=== PATIENT | male | born 1940 | race Hispanic/Latino ===

== ENCOUNTER 2019-07-23 12:45 | Inpatient (IN) | payer MEDICARE, SELFPAY ==
[2019-07-23] MEDS ORDERED: Communication Order-Pharmacy FS SCH (16:33)
--- NOTE | 2019-07-23 17:16 | PDOC.HHP ---
Hospitalist HPI - History of Present Illness Chest pain History of Present Illness: Patient admitted with plans to undergo CABG by Dr. Townsend after undergoing abnormal cardiac work-up and a cath that revealed severe LAD stenosis by Dr. Corbett. He was recently hospitalized on 07/07 for 3 days after presenting with chest pain and cleared for discharge. Patient states the pain that he experienced then was not as severe as the pain on Saturday. It was constant for 2.5 hrs and relieved with medications. He apparently had recurring pain this past Saturday at 9am while picking up around his front yard, and then severe pain at 5pm when shoveling food for his horses. Patient states the pain began on both sides of his jaw and radiating down to the center of his chest, 10/10 in severity and lasted 5 min. Relieved with rest. He became alarmed and contacted his daughter who lives in [place] and helped him schedule an appointment. He had a cardiac PET perfusion scan yesterday that was "markedly abnormal reavealing moderate size area of ischemia involving anterior apical wall with no scarring and normal EF. He reportedly had a normal cath several years ago. He is a previous smoker. He has had an EKG showing NSR with diffuse nonspecific ST-T wave changes. CXR on 07/07 was unremarkable. Echo on 07/07 showed normal EF of 55%, stage I diastolic dysfunction and hypokinesis of anterior apex. PA pressure 22 mmHg. Carotid US 07/22 with minimal amount of plaques and no significant stenoses. Hospitalist ROS - Review of Systems Constitutional: denies: fever, chills, sweats, weakness, malaise, other Eyes: denies: pain, vision change, conjunctivae inflammation, eyelid inflammation, redness, other ENT: denies: ear pain, ear discharge, nose pain, nose discharge, nose congestion , mouth pain, mouth swelling, throat pain, throat swelling, other Respiratory: denies: cough, dry, shortness of breath, hemoptysis, SOB with excertion, pleuritic pain, sputum, wheezing, other Cardiovascular: reports: chest pain. denies: palpitations, orthopnea, paroxysmal noc. dyspnea, edema, light headedness, other Gastrointestinal: denies: nausea, vomiting, abdominal pain, diarrhea, constipation, melena, hematochezia, other Genitourinary: denies: dysuria, frequency, incontinence, hematuria, retention, other Musculoskeletal: denies: neck pain, shoulder pain, arm pain, back pain, hand pain, leg pain, foot pain, other Skin: denies: rash, lesions, maco, bruising, other Neurological: denies: weakness, numbness, incoordination, change in speech, confusion, seizures, other Hospitalist History - Past Surgical History Past Surgical History: reports: Cataract Removal, Other (Right knee surgery) - Social History Smoking Status: Former smoker (10 pack year smoking history) Alcohol: reports: Occassional - Exam General Appearance: NAD, awake alert Eye: PERRL, anicteric sclera ENT: normocephalic atraumatic, no oropharyngeal lesions Neck: supple, symmetric, no JVD, no lymphadenopathy Heart: RRR, no murmur, no gallops Respiratory: CTAB, no wheezes, no rales, no ronchi, normal chest expansion, no tachypnea Gastrointestinal: soft, non-tender, non-distended, normal bowel sounds, no guarding, no rigidity Extremities: no edema Skin: normal turgor, no lesions Neurological: cranial nerve grossly intact, normal sensation to touch, no weakness, no focal deficits Musculoskeletal: normal tone, normal strength Psychiatric: normal affect, normal behavior, A&O x 3 Hospitalist Results - Labs Result Diagrams: 07/23/19 17:28 07/23/19 17:28 Hospitalist H&P A/P - Problem (1) Unstable angina Status: Acute (2) LAD stenosis Code(s): I25.10 - ATHSCL HEART DISEASE OF [place] CORONARY ARTERY W/O ANG PCTRS Status: Acute (3) Dyslipidemia Code(s): E78.5 - HYPERLIPIDEMIA, UNSPECIFIED Status: Chronic (4) Essential hypertension Code(s): I10 - ESSENTIAL (PRIMARY) HYPERTENSION Status: Chronic (5) Hyperglycemia Code(s): R73.9 - HYPERGLYCEMIA, UNSPECIFIED Status: Chronic (6) Former smoker Status: Chronic - Plan Plan: Seen by Dr. Townsend, for surgery tmrw. NPO at midnight. Cardiology consult. Cardiac monitoring. Obtain CBC, BMP, Mg+, TSH, Trop x 2. Suspected DM, obtain Hgb A1C Monitor glucose. Gentle IV hydration at midnight. Fasting lipid panel. Resume home meds once verified. DVT prophylaxis with SCDs. Patient ambulatory. GI Prophylaxis with famotidine. Code status: FULL. Surrogate decision maker is his daughter
[2019-07-23 17:57] LABS: #Basophils 0.1 thou/uL (0.0-0.2); #Eosinphils 0.3 thou/uL (0.0-0.7); #Lymphocytes 1.6 thou/uL (1.20-3.40); #Monocytes 0.5 thou/uL (0.11-0.59); #Neutrophils 2.6 thou/uL (1.40-6.50); %Eosinophils 6.1 % (0.0-10.0); %Monocytes 10.6 % (0.0-10.0); %Neutrophils 51.2 % (42.0-75.0); Hemoglobin 13.4 g/dL (14.0-18.0); MDiff Complete? YES; Mean Corpuscular HGB CONC 33.8 g/dL (32.0-36.0); Mean Corpuscular Hemoglobin 35.2 pg (27.0-31.0); Mean Platelet Volume 8.6 fL (7.4-10.4); Platelet Count 118 thou/uL (130-400); Platelet Morphology Comment Appears Decreased; Polychromasia SLIGHT = 2-3 cells (100X) (0-2/hpf); RBC Distribution Width 12.2 % (11.5-14.5); White Blood Cell (WBC) Count 5.1 thou/uL (4.8-10.8)
[2019-07-23 17:58] LABS: Anion Gap 10 mmol/L (10-20); BUN (Urea Nitrogen) 15 mg/dL (8.4-25.7); Calc. Creatinine Clearance 76 mL/min (70-130); Calcium 8.4 mg/dL (7.8-10.44); Carbon Dioxide 27 mmol/L (23-31); Chloride 107 mmol/L (98-107); Estimated GFR-MDRD 82; Glucose 103 mg/dL (83-110); Magnesium 2.1 mg/dL (1.6-2.6); Potassium 3.9 mmol/L (3.5-5.1); Sodium 140 mmol/L (136-145)
--- NOTE | 2019-07-23 18:03 | CON ---
DATE OF CONSULTATION: HISTORY OF PRESENT ILLNESS: This is a 78-year-old gentleman with a history of hypertension and a very remote history of smoking. He has been having chest pain for about 3 weeks. Initially brought on with exertion, however, more recently with minimal exertion. He was seen yesterday by Dr. Corbett in his office with an abnormal stress test anteriorly as well as a normal carotid ultrasound. Due to his increasing symptoms, he was brought, admitted to the hospital yesterday and cardiac cath today showed a 90% proximal LAD lesion and a left dominant system with a normal OM and small but normal left PDA and nondominant right. Normal ejection fraction. PAST SURGICAL HISTORY: Includes arthroscopy in his right knee many years ago as well as tonsillectomy. SOCIAL HISTORY: He has not smoked in many years. He is for the past 10 years with his dying of pulmonary fibrosis. He worked for a [employer] in [place] for many years and actually moved here about 15 years ago to be closer to the [facility] for his 's care. He currently lives with another lady for the past 2 years and she is currently in [facility], not having returned from the [place] holidays yet. He has nine children, scattered about the country with one I think living locally, next closest one in [place]. PHYSICAL EXAMINATION: GENERAL: He is alert, cooperative gentleman, small statured, no distress. He has bilateral ear creases. He has no carotid bruits. CARDIAC: Regular rate and rhythm. No murmurs. LUNGS: Clear to auscultation. ABDOMEN: Soft and nontender. No aneurysm. EXTREMITIES: He has palpable pedal pulses bilaterally with no peripheral edema. PLAN: At this time, the plan is single-vessel bypass to the LAD, possibly off pump and informed consent has been obtained. Job ID: [id number]
[2019-07-23] MEDS: Famotidine/PF 20 mg/2ml Vial SLOW IVP SCH (20:07)
[2019-07-23] MEDS: Carvedilol 3.125 MG TAB PO SCH (20:08)
[2019-07-23] MEDS ORDERED: Atorvastatin Calcium 40 MG TAB PO SCH (21:00)
[2019-07-23] MEDS ORDERED: Sodium Chloride 0.9% 1,000 ML IV SCH (23:55)
[2019-07-24 05:11] LABS: Hemoglobin A1c 5.6 % (4.0-6.0)
[2019-07-24 05:17] LABS: #Eosinphils 0.3 thou/uL (0.0-0.7); #Lymphocytes 1.7 thou/uL (1.20-3.40); #Monocytes 0.6 thou/uL (0.11-0.59); #Neutrophils 3.6 thou/uL (1.40-6.50); %Basophils 0.5 % (0.0-1.0); %Eosinophils 5.6 % (0.0-10.0); %Monocytes 9.3 % (0.0-10.0); %Neutrophils 57.6 % (42.0-75.0); Hemoglobin 13.3 g/dL (14.0-18.0); Mean Corpuscular HGB CONC 33.2 g/dL (32.0-36.0); Mean Corpuscular Hemoglobin 34.5 pg (27.0-31.0); Mean Platelet Volume 9.6 fL (7.4-10.4); Platelet Count 114 thou/uL (130-400); RBC Distribution Width 12.1 % (11.5-14.5); Red Blood Cell (RBC) Count 3.86 mill/uL (4.70-6.10); White Blood Cell (WBC) Count 6.2 thou/uL (4.8-10.8)
[2019-07-24] MEDS: Carvedilol 3.125 MG TAB PO SCH (05:22)
[2019-07-24 05:23] LABS: Anion Gap 10 mmol/L (10-20); BUN (Urea Nitrogen) 17 mg/dL (8.4-25.7); Calc. Creatinine Clearance 64 mL/min (70-130); Calcium 8.8 mg/dL (7.8-10.44); Carbon Dioxide 27 mmol/L (23-31); Cardiac Risk 3.5 (Less than 4.5); Chloride 107 mmol/L (98-107); Cholesterol 132 mg/dl (< 200 Desired); Estimated GFR-MDRD 67; Glucose 98 mg/dL (83-110); HDL Cholesterol 38 mg/dL (>60 Neg Risk); LDL Cholesterol, Calculated 72 mg/dL; Potassium 4.6 mmol/L (3.5-5.1); Sodium 139 mmol/L (136-145); Triglycerides 110 mg/dL (Less than 150)
[2019-07-24] MEDS ORDERED: Albumin 5% 500 ML ONE (06:28)
[2019-07-24] MEDS ORDERED: Dexmedetomidine 200 MCG/2 ML VIAL ONE (06:30)
[2019-07-24] MEDS ORDERED: Vecuronium 10 MG VIAL ONE ×2 (06:30→09:31)
[2019-07-24] MEDS ORDERED: Fentanyl 100 MCG/2 ML VIAL ONE (06:30)
[2019-07-24] MEDS ORDERED: Midazolam HCl 5 mg/5 ml Vial ONE (06:30)
[2019-07-24] MEDS ORDERED: Midazolam HCl 2 mg/2 ml Vial ONE (06:30)
[2019-07-24] MEDS ORDERED: Heparin 10,000 UNITS/1 ML VIAL 30,000 UNITS in Sodium Chloride 0.9% 1,000 ML FS SCH (07:00)
[2019-07-24] MEDS: Famotidine/PF 20 mg/2ml Vial SLOW IVP SCH ×2 (08:37→20:03)
[2019-07-24] MEDS ORDERED: Prevnar 13-Val Conj/PF 0.5 ML SYRINGE IM ONE (09:00)
[2019-07-24] MEDS ORDERED: FLU VACC TS2019-20(65YR UP)/PF 180 MCG/0.5 ML SYRINGE IM ONE (09:00)
[2019-07-24] MEDS ORDERED: Papaverine 60 MG/2 ML VIAL ONE (09:31)
[2019-07-24] MEDS ORDERED: Calcium Chloride 1 GM/10 ML Abboject SYRINGE ONE (09:31)
[2019-07-24] MEDS ORDERED: Lidocaine 1% PF 5 ML VIAL ONE (09:31)
[2019-07-24] MEDS ORDERED: Lidocaine 2% PF 5 ML VIAL ONE (09:31)
[2019-07-24] MEDS ORDERED: Heparin 5,000 UNITS/ML VIAL ONE (09:31)
[2019-07-24] MEDS ORDERED: Heparin 30,000 units/30 ml VIAL ONE (09:31)
[2019-07-24] MEDS ORDERED: Ketorolac Tromethamine 30 MG/ML VIAL ONE (09:31)
[2019-07-24] MEDS ORDERED: Dexamethasone 20 MG/5 ML VIAL ONE (09:31)
[2019-07-24] MEDS ORDERED: Cardioplegic Soln 1,000 ML BAG ONE (09:31)
[2019-07-24] MEDS ORDERED: Ondansetron PF 4 MG/2 ML Vial ONE (09:31)
[2019-07-24] MEDS ORDERED: Protamine Sulfate 250 MG/25 ML VIAL ONE (09:31)
[2019-07-24] MEDS ORDERED: Potassium Chloride 60 MEQ/30 ML VIAL ONE (09:31)
[2019-07-24] MEDS ORDERED: Glycopyrrolate 0.2 MG/ML 5 ML SYRINGE ONE (09:31)
[2019-07-24] MEDS ORDERED: ePHEDrine/0.9% NaCl/PF SYRINGE 50 mg/10 ml ONE (09:31)
[2019-07-24] MEDS ORDERED: Magnesium Sulfate 1 GM/2 ML VIAL ONE (09:31)
[2019-07-24] MEDS ORDERED: PHENYLEPHRINE-NS 100 MCG/ML 10 ML SYRINGE ONE (09:31)
[2019-07-24] MEDS ORDERED: Aminocaproic Acid 5 GM/20 ML VIAL ONE (09:31)
[2019-07-24] MEDS ORDERED: Thrombin 5000 UNITS/5 ML VIAL ONE (09:31)
[2019-07-24] MEDS ORDERED: Sodium Bicarb 50 MEQ/50 ML Abboject 8.4% SYRINGE ONE (09:31)
[2019-07-24] MEDS ORDERED: Nitroglycerin 50 MG/250 ML BOT ONE (09:31)
[2019-07-24] MEDS ORDERED: HYDROcodone/Acetaminophen 5/325 mg Tablet PO PRN (10:18)
[2019-07-24] MEDS ORDERED: Morphine 2 MG/ML SYRINGE SLOW IVP PRN (10:18)
[2019-07-24] MEDS ORDERED: Mag-Al 1200 mg/1200 mg/30 ML UDCUP PO PRN (10:18)
[2019-07-24] MEDS ORDERED: Fentanyl 100 MCG/2 ML VIAL SLOW IVP PRN ×2 (10:18)
[2019-07-24] MEDS ORDERED: niCARdipine 25 MG in Sodium Chloride 0.9% 250 ML 240 ML IVPB PRN (10:18)
[2019-07-24] MEDS ORDERED: Bisacodyl 10 MG SUPP PR PRN (10:18)
[2019-07-24] MEDS ORDERED: Nitroglycerin 50 MG/250 ML BOT 250 ML IVPB PRN (10:18)
[2019-07-24] MEDS ORDERED: DOPamine 400 MG/D5W 250 ML 250 ML IVPB PRN (10:18)
[2019-07-24] MEDS ORDERED: hydrALAZINE 20 MG/ML VIAL SLOW IVP PRN (10:18)
[2019-07-24] MEDS ORDERED: Hetastarch 6% 500 ML 500 ML IVPB PRN (10:18)
[2019-07-24] MEDS ORDERED: Post-Op Insulin Drip Protocol IVPB ONE (10:18)
[2019-07-24] MEDS ORDERED: Magnesium 2 GM/50 ML 2 GM in Premix Bag 1 BAG IVPB SCH (10:18)
[2019-07-24] MEDS ORDERED: Bisacodyl 5 MG TAB PO PRN (10:18)
[2019-07-24] MEDS ORDERED: Guaifenesin DM 100-10/5 ML UDCUP PO PRN (10:18)
[2019-07-24] MEDS ORDERED: Promethazine HCl 25 MG/ML VIAL IM PRN (10:18)
[2019-07-24] MEDS ORDERED: Acetaminophen 325 MG TAB PO PRN (10:18)
[2019-07-24] MEDS ORDERED: Norepinephrine 8 MG/0.9% NS 250 ML IVPB PRN (10:18)
[2019-07-24] MEDS ORDERED: Dextrose 50% Abboject 50 ML SYRINGE SLOW IVP PRN (10:31)
[2019-07-24] MEDS ORDERED: Dextrose 5% in Water 1,000 ML IV PRN (10:31)
[2019-07-24] MEDS: Lactated Ringer's 1,000 ML IV SCH (10:31)
[2019-07-24] MEDS ORDERED: HUMULIN R 100 UNITS in Sodium Chloride 0.9% 100 ML IVPB SCH (10:31)
[2019-07-24 11:00] LABS: #Eosinphils 0.2 thou/uL (0.0-0.7); #Lymphocytes 0.6 thou/uL (1.20-3.40); #Monocytes 0.1 thou/uL (0.11-0.59); #Neutrophils 6.6 thou/uL (1.40-6.50); %Basophils 0.3 % (0.0-1.0); %Eosinophils 2.8 % (0.0-10.0); %Lymphocytes 8.1 % (21.0-51.0); %Monocytes 0.8 % (0.0-10.0); Hemoglobin 11.8 g/dL (14.0-18.0); Mean Corpuscular HGB CONC 33.4 g/dL (32.0-36.0); Mean Corpuscular Hemoglobin 34.6 pg (27.0-31.0); Mean Platelet Volume 9.3 fL (7.4-10.4); Platelet Count 75 thou/uL (130-400); RBC Distribution Width 12.1 % (11.5-14.5); Red Blood Cell (RBC) Count 3.42 mill/uL (4.70-6.10); White Blood Cell (WBC) Count 7.5 thou/uL (4.8-10.8)
[2019-07-24] MEDS: Insulin Regular 300 UNITS/3 ML VIAL SC PRN ×3 (11:03→20:03)
[2019-07-24 11:04] LABS: INR-International Normal Ratio 1.4; PTT 34.8 SEC (22.9-36.1); Prothrombin Time 17.1 SEC (12.0-14.7)
[2019-07-24 11:20] LABS: Anion Gap 6 mmol/L (10-20); BUN (Urea Nitrogen) 17 mg/dL (8.4-25.7); Calc. Creatinine Clearance 81 mL/min (70-130); Calcium 7.7 mg/dL (7.8-10.44); Carbon Dioxide 26 mmol/L (23-31); Chloride 110 mmol/L (98-107); Estimated GFR-MDRD 90; Glucose 133 mg/dL (83-110); Potassium 4.4 mmol/L (3.5-5.1); Sodium 138 mmol/L (136-145)
--- NOTE | 2019-07-24 11:28 | RAD ---
PORTABLE CHEST: Date: 07/24/2019 HISTORY: Postop open heart surgery. COMPARISON: None. FINDINGS: Heart size is borderline. Postop sternotomy change. There are some calcific appearing densities seen along the left hemidiaphragm. A right subclavian line is present. The catheter tip is directed into t he jugular vein. Lungs are clear of infiltrates. IMPRESSION: 1. Postop sternotomy change. 2. Right subclavian line with catheter tip directed into the jugular vein. POS: YINKA
--- NOTE | 2019-07-24 12:37 | OP ---
DATE OF PROCEDURE: 07/24/2019 PREOPERATIVE DIAGNOSIS: Coronary artery disease. PROCEDURES PERFORMED: Coronary artery bypass graft x1, left internal mammary artery to LAD, MENDES being good quality and size, LAD plaque throughout the vessel that was palpable and at the site of anastomosis, probably measuring 1.5 mm. 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 TRANSFUSION: None. DESCRIPTION OF PROCEDURE: After adequate anesthesia had been obtained, the patient was prepped and draped. Sternotomy incision was made. Left internal mammary artery was then harvested after dividing the sternum without entering the pleura. The patient was heparinized, the mammary was divided distally and passed posterior to the thymus gland and the pericardium was incised to allow access to the LAD with the mammary. Aorta and right atrium were cannulated, and cardiopulmonary bypass begun. Aorta was crossclamped, and a liter of [place] cardioplegic solution was given, following which the LAD to MENDES anastomosis was completed. The pedicle was secured to the myocardium proximally and distally, and the cross-clamp was removed. The cardioplegic needle site was secured with a running 5-0 Prolene suture. The patient was then weaned from cardiopulmonary bypass, cannula was removed, and protamine was given systemically. Aortic cannulation site was secured with a 4-0 Prolene suture. Mediastinal drains x2 were placed, following which the sternum was reapproximated with #7 interrupted wire using vancomycin paste on the sternal edges, platelet rich blood, and platelet poor plasma. Subcutaneous tissue and skin were closed in layers. Job ID: [id number]
[2019-07-24] MEDS: CEFAZOLIN 2 GM in Premix Bag 1 BAG IVPB SCH ×2 (13:03→22:31)
[2019-07-24] MEDS: Ondansetron PF 4 MG/2 ML Vial IVP PRN (13:36)
[2019-07-24 16:38] LABS: Actual Bicarbonate (HCO3a) 22.7 mEq/L (22-28); Base Excess (BEa) -2.2 mEq/L (-2.0 to +3.0); CO2 Tension 39.7 mmHg (35.0-45.0); Carboxyhemoglobin (COHb) 0.7 gm% (0.0-3.0); Hemoglobin (Hb) 11.1 g/dL (14.0-18.0); Potassium - ABG Lab 3.92 mmol/L (3.70-5.30); pH, Arterial 7.38 (7.35-7.45)
[2019-07-24 16:39] LABS: ALV-art Gradient 84.015 (0-20); Puncture Site LINE
[2019-07-24 16:40] LABS: Hemoglobin 10.9 g/dL (14.0-18.0)
--- NOTE | 2019-07-24 16:43 | RAD ---
EXAM: CHEST ONE VIEW HISTORY: Post CABG with bleeding. COMPARISON: 07/24/2019 at 1045 hours FINDINGS: Right subclavian central venous catheter is again noted in place with catheter directed in a cephalad direction overlying the visualized base of the right neck. Postsurgical changes related to median sternotomy are again seen. Mediastinal drains remain in place. Again noted are calcified pleural-base d plaques at the left lung base likely due to pleural-based calcifications. There is suggestion of mild increased density in the retrocardiac region left lung base as well as medial right lung base pr obably due to mild atelectasis. No consolidation or definite pleural effusion is appreciated. There has been no significant interval change compared to prior exam. IMPRESSION: 1. Postsurgical changes related to median sternotomy with mediastinal drain noted in place. 2.] Intravenous catheter in place with the catheter again directed cephalad overlying the right neck. 3. Findings likely due to bibasilar atelectasis.
[2019-07-24 16:52] LABS: Potassium 3.9 mmol/L (3.5-5.1)
[2019-07-24] MEDS: Potassium Chloride 20 MEQ/100 ML PREMIX BAG IVPB PRN (17:01)
--- NOTE | 2019-07-24 19:52 | PDOC.HOSPP ---
- Subjective Encounter Date: 07/24/19 Encounter Time: 19:51 Subjective: Pt seen for followup re: chest pain. Feels better. s/p CABG. - Objective Vital Signs & Weight: Vital Signs (12 hours) Temp Pulse Ox 07/24/19 19:38 100 07/24/19 19:08 99 07/24/19 19:00 97.6 F 07/24/19 08:00 93 L Weight Weight 167 lb 8 oz Most Recent Monitor Data Heart Rate from ECG 96 NIBP 120/77 NIBP BP-Mean 91 Respiration from ECG 30 SpO2 100 I&O: 07/23/19 07/24/19 07/25/19 06:59 06:59 06:59 Intake Total 2142 Output Total 2435 Balance -293 Result Diagrams: 07/24/19 16:29 07/24/19 16:29 Additional Labs: Accuchecks 07/24/19 07/24/19 07/24/19 16:08 10:44 09:46 POC Glucose 137 H 144 H 140 H 07/24/19 07/24/19 07/24/19 09:07 08:37 08:08 POC Glucose 168 H 161 H 116 H Labs and MARs reviewed by me EKG Reviewed by me: Yes (Tele: NSR) Hospitalist ROS - Review of Systems Constitutional: denies: fever, chills, sweats, weakness, malaise Cardiovascular: reports: chest pain. denies: palpitations, orthopnea, paroxysmal noc. dyspnea, edema, light headedness Gastrointestinal: denies: nausea, vomiting, abdominal pain, diarrhea, constipation, melena, hematochezia Genitourinary: denies: dysuria, frequency, incontinence, hematuria, retention Musculoskeletal: denies: neck pain, shoulder pain, arm pain, back pain, hand pain, leg pain, foot pain - Medication Medications: Active Medications Generic Name Dose Route Start Last Admin Trade Name Freq PRN Reason Stop Dose Admin Albumin Human 12.5 gm 07/24/19 10:18 07/24/19 16:46 Albumin 5% IVPB 07/25/19 10:19 12.5 gm Q6H PRN Administration To Maintain SBP> 90 mmHG Cefazolin Sodium/Dextrose 2 gm 50 mls @ 100 mls/hr 07/24/19 14:00 07/24/19 13 :03 / Device IVPB 07/25/19 06:29 50 mls Q8HR DARIO Administration Dopamine HCl/Dextrose 250 mls @ 0 mls/hr 07/24/19 10:18 07/24/19 13:19 Dopamine 400 Mg/D5w 250 Ml IVPB 250 mls PRN PRN Administration To maintain SBP > 90 mmHG Protocol Titrate Hetastarch/Sodium Chloride 500 mls @ 0 mls/hr 07/24/19 10:18 07/24/19 12:57 Hespan IVPB 07/25/19 10:14 500 mls PRN PRN Administration To Maintain SBP > 90mmHg As Directed Lactated Ringer's 1,000 mls @ 75 mls/hr 07/24/19 10:18 07/24/19 10:31 Lactated Ringer's IV 1,000 mls .[id number] DARIO Administration Insulin Human Regular 0 units 07/24/19 10:31 07/24/19 16:07 Humulin R SC 2 unit Q4H PRN Administration POST OP SLIDING SCALE Protocol Ondansetron HCl 4 mg 07/24/19 10:18 07/24/19 13:36 Zofran IVP 4 mg Q6H PRN Administration Nausea/Vomiting Potassium Chloride 20 meq 07/24/19 10:18 07/24/19 17:01 Kcl IVPB 20 meq PRN PRN Administration K level </= 4.0 - Exam General Appearance: NAD Eye: anicteric sclera ENT: moist mucosa Neck: supple, symmetric, no JVD, no thyromegaly Heart: RRR, no gallops, no rubs, normal peripheral pulses Respiratory: CTAB, no wheezes, no rales, no ronchi Respiratory - other findings: chest tube Gastrointestinal: soft, non-tender, non-distended, normal bowel sounds Psychiatric: normal affect, normal behavior, A&O x 3 Hosp A/P (1) Chest pain Code(s): R07.9 - CHEST PAIN, UNSPECIFIED Status: Acute (2) Dyslipidemia Code(s): E78.5 - HYPERLIPIDEMIA, UNSPECIFIED Status: Chronic (3) Essential hypertension Code(s): I10 - ESSENTIAL (PRIMARY) HYPERTENSION Status: Chronic - Plan s/p CABG Continue Lipitor HTN controlled
[2019-07-24] MEDS: Atorvastatin Calcium 20 MG TAB PO SCH (20:03)
[2019-07-24] MEDS: HYDROcodone/Acetaminophen 5/325 mg Tablet PO PRN (23:10)
[2019-07-25] MEDS: Lactated Ringer's 1,000 ML IV SCH (01:20)
[2019-07-25 04:33] LABS: #Lymphocytes 0.7 thou/uL (1.20-3.40); #Monocytes 0.8 thou/uL (0.11-0.59); #Neutrophils 9.1 thou/uL (1.40-6.50); %Lymphocytes 6.8 % (21.0-51.0); %Monocytes 7.5 % (0.0-10.0); %Neutrophils 85.7 % (42.0-75.0); Hemoglobin 9.8 g/dL (14.0-18.0); Mean Corpuscular HGB CONC 33.5 g/dL (32.0-36.0); Mean Corpuscular Hemoglobin 34.7 pg (27.0-31.0); Mean Platelet Volume 9.3 fL (7.4-10.4); Platelet Count 79 thou/uL (130-400); RBC Distribution Width 12.1 % (11.5-14.5); Red Blood Cell (RBC) Count 2.83 mill/uL (4.70-6.10); White Blood Cell (WBC) Count 10.6 thou/uL (4.8-10.8)
[2019-07-25 04:48] LABS: Anion Gap 12 mmol/L (10-20); BUN (Urea Nitrogen) 17 mg/dL (8.4-25.7); Calc. Creatinine Clearance 89 mL/min (70-130); Calcium 7.7 mg/dL (7.8-10.44); Carbon Dioxide 21 mmol/L (23-31); Chloride 111 mmol/L (98-107); Estimated GFR-MDRD Greater than 90; Glucose 83 mg/dL (83-110); Potassium 3.8 mmol/L (3.5-5.1); Sodium 140 mmol/L (136-145)
[2019-07-25] MEDS: CEFAZOLIN 2 GM in Premix Bag 1 BAG IVPB SCH (05:42)
[2019-07-25] MEDS: Potassium Chloride 20 MEQ/100 ML PREMIX BAG IVPB PRN (05:43)
[2019-07-25] MEDS: Ondansetron PF 4 MG/2 ML Vial IVP PRN (06:22)
[2019-07-25] MEDS: Aspirin Chewable 81 MG TAB PO SCH (07:54)
[2019-07-25] MEDS: HYDROcodone/Acetaminophen 5/325 mg Tablet PO PRN ×3 (07:54→19:54)
[2019-07-25] MEDS: Famotidine/PF 20 mg/2ml Vial SLOW IVP SCH ×2 (07:54→19:54)
--- NOTE | 2019-07-25 08:36 | RAD ---
PORTABLE CHEST ONE VIEW: HISTORY: Follow up postop open heart. COMPARISON: 07/24/2019 FINDINGS: Right central line with tip extending in the right jugular vein, stable. Stable chest tubes. Poor ins piratory effort with some minimal pleural and parenchymal opacity changes, particularly in the left b ase, evidence for some postop change without pneumothorax or other acute process. IMPRESSION: Stable chest. No significant new process. POS: YINKA
[2019-07-25] MEDS ORDERED: Aspirin 81 mg Enteric Coated Tablet PO SCH (09:00)
[2019-07-25] MEDS ORDERED: Cepastat Lozenges 1 LOZ PO SCH (11:00)
[2019-07-25 13:41] VITALS: BMI 28.3
[2019-07-25 16:09] LABS: Platelet Count 77 thou/uL (130-400)
--- NOTE | 2019-07-25 18:15 | PDOC.HOSPP ---
- Subjective Encounter Date: 07/25/19 Encounter Time: 10:00 Subjective: Pt seen for followup re: chest pain. Sitting in chair, c/o soreness at surgical site. c/o sore throat. - Objective Vital Signs & Weight: Vital Signs (12 hours) Temp Pulse Ox 07/25/19 16:00 98.4 F 07/25/19 11:00 98.5 F 07/25/19 07:25 99 07/25/19 07:00 98.3 F Weight Weight 180 lb 12.465 oz Most Recent Monitor Data Heart Rate from ECG 96 NIBP 99/58 NIBP BP-Mean 71 Respiration from ECG 12 SpO2 98 I&O: 07/24/19 07/25/19 07/26/19 06:59 06:59 06:59 Intake Total 2292 1388 Output Total 3405 475 Balance -1113 913 Result Diagrams: 07/25/19 16:00 07/25/19 04:00 Additional Labs: Accuchecks 07/25/19 07/25/19 07/25/19 07:52 04:08 00:02 POC Glucose 95 82 89 07/24/19 19:58 POC Glucose 121 H Labs and MARs reviewed by me EKG Reviewed by me: Yes (Tele: NSR) Hospitalist ROS - Review of Systems ENT: reports: throat pain Respiratory: denies: cough, shortness of breath, SOB with excertion, pleuritic pain, wheezing Cardiovascular: reports: chest pain. denies: palpitations, orthopnea, paroxysmal noc. dyspnea, edema, light headedness - Medication Medications: Active Medications Generic Name Dose Route Start Last Admin Trade Name Freq PRN Reason Stop Dose Admin Hydrocodone Bitart/Acetaminophen 2 tab 07/24/19 10:18 07/25/19 12:41 [place] 5/325 PO 2 tab Q4H PRN Administration Severe Pain (7-10) Aspirin 81 mg 07/25/19 09:00 07/25/19 07:54 Aspirin Chewable PO 81 mg DAILY DARIO Administration Atorvastatin Calcium 20 mg 07/24/19 21:00 07/24/19 20:03 Lipitor PO 20 mg QPM DARIO Administration Famotidine 20 mg 07/24/19 21:00 07/25/19 07:54 Pepcid SLOW IVP 20 mg Q12HR DARIO Administration Dopamine HCl/Dextrose 250 mls @ 0 mls/hr 07/24/19 10:18 07/24/19 13:19 Dopamine 400 Mg/D5w 250 Ml IVPB 250 mls PRN PRN Administration To maintain SBP > 90 mmHG Protocol Titrate Morphine Sulfate 2 mg 07/24/19 10:18 07/25/19 01:48 Morphine SLOW IVP 2 mg Q15MIN PRN Administration Severe Pain (7-10) Ondansetron HCl 4 mg 07/24/19 10:18 07/25/19 06:22 Zofran IVP 4 mg Q6H PRN Administration Nausea/Vomiting Potassium Chloride 20 meq 07/24/19 10:18 07/25/19 05:43 Kcl IVPB 20 meq PRN PRN Administration K level </= 4.0 - Exam General Appearance: NAD Eye: anicteric sclera ENT: no oropharyngeal lesions, moist mucosa Neck: supple Heart: RRR Respiratory: CTAB, normal chest expansion Extremities: no cyanosis Psychiatric: normal affect, normal behavior Hosp A/P (1) Chest pain Code(s): R07.9 - CHEST PAIN, UNSPECIFIED Status: Acute (2) Dyslipidemia Code(s): E78.5 - HYPERLIPIDEMIA, UNSPECIFIED Status: Chronic (3) Essential hypertension Code(s): I10 - ESSENTIAL (PRIMARY) HYPERTENSION Status: Chronic - Plan s/p CABG HTN controlled Continue aspirin and Lipitor. Counseled pt re; importance of incentive spirometry. Cepacol lozenges for throat pain.
[2019-07-25] MEDS: Atorvastatin Calcium 20 MG TAB PO SCH (19:53)
[2019-07-26] MEDS ORDERED: Amiodarone 150 MG, Admixture Fee 1 EACH in Dextrose 5% in Water 100 ML IVPB SCH (02:15)
[2019-07-26] MEDS: Amiodarone 450 MG, Admixture Fee 1 EACH in Dextrose 5% in Water 250 ML IVPB SCH ×2 (02:57→09:08)
[2019-07-26 04:21] LABS: #Eosinphils 0.1 thou/uL (0.0-0.7); #Lymphocytes 1.3 thou/uL (1.20-3.40); #Monocytes 1.1 thou/uL (0.11-0.59); #Neutrophils 7.2 thou/uL (1.40-6.50); %Basophils 0.2 % (0.0-1.0); %Eosinophils 0.6 % (0.0-10.0); %Monocytes 11.2 % (0.0-10.0); Mean Corpuscular HGB CONC 34.1 g/dL (32.0-36.0); Mean Corpuscular Hemoglobin 35.2 pg (27.0-31.0); Mean Platelet Volume 9.2 fL (7.4-10.4); Platelet Count 81 thou/uL (130-400); RBC Distribution Width 12.2 % (11.5-14.5); Red Blood Cell (RBC) Count 2.84 mill/uL (4.70-6.10); White Blood Cell (WBC) Count 9.6 thou/uL (4.8-10.8)
[2019-07-26 04:49] LABS: Anion Gap 10 mmol/L (10-20); BUN (Urea Nitrogen) 19 mg/dL (8.4-25.7); Calc. Creatinine Clearance 96 mL/min (70-130); Calcium 7.6 mg/dL (7.8-10.44); Carbon Dioxide 24 mmol/L (23-31); Chloride 106 mmol/L (98-107); Estimated GFR-MDRD Greater than 90; Glucose 132 mg/dL (83-110); Potassium 4.1 mmol/L (3.5-5.1); Sodium 136 mmol/L (136-145)
[2019-07-26] MEDS: Famotidine/PF 20 mg/2ml Vial SLOW IVP SCH (08:43)
[2019-07-26] MEDS: Aspirin Chewable 81 MG TAB PO SCH (08:43)
--- NOTE | 2019-07-26 08:44 | RAD ---
PORTABLE CHEST ONE VIEW: HISTORY: Follow up postop open heart. COMPARISON: 07/25/2019 FINDINGS: Stable appearance of the chest with some pleural and parenchymal opacity changes in the left base. No new process. IMPRESSION: Stable chest. Minimal stable pleural and parenchymal opacity changes in the left base. Continue short-term followup. POS: MELISSA
[2019-07-26] MEDS: HYDROcodone/Acetaminophen 5/325 mg Tablet PO PRN (08:47)
[2019-07-26] MEDS ORDERED: Mineral Oil ENEMA PR PRN (10:48)
[2019-07-26] MEDS ORDERED: Mag-Al 1200 mg/1200 mg/30 ML UDCUP PO PRN (10:48)
[2019-07-26] MEDS ORDERED: Nitroglycerin 0.4 MG TAB (25 Tab Bottle) SL PRN (10:48)
[2019-07-26] MEDS ORDERED: Acetaminophen 325 MG TAB PO PRN (10:48)
[2019-07-26] MEDS ORDERED: Amiodarone 200 MG TAB PO SCH (11:15)
--- NOTE | 2019-07-26 12:41 | PDOC.HOSPP ---
- Subjective Encounter Date: 07/26/19 Encounter Time: 07:00 Subjective: Pt seen for followup for chest pain. better today. Used incentive spirometer yesterday, not so far today. - Objective Vital Signs & Weight: Vital Signs (12 hours) Temp Pulse Ox 07/26/19 11:00 98.3 F 07/26/19 07:14 96 07/26/19 07:00 98.8 F 07/26/19 04:00 98.4 F 07/26/19 03:10 94 L 07/26/19 02:45 98 Weight Weight 179 lb 14.355 oz Most Recent Monitor Data Heart Rate from ECG 78 NIBP 101/66 NIBP BP-Mean 77 Respiration from ECG 16 SpO2 95 I&O: 07/25/19 07/26/19 07/27/19 06:59 06:59 06:59 Intake Total 2292 1936 1230 Output Total 3405 1200 200 Balance -5346 416 7816 Result Diagrams: 07/26/19 04:07 07/26/19 04:07 Additional Labs: Labs and MARs reviewed by me EKG Reviewed by me: Yes (Tele: NSR) Hospitalist ROS - Review of Systems Respiratory: denies: cough, shortness of breath, SOB with excertion, pleuritic pain, wheezing Cardiovascular: reports: chest pain. denies: palpitations, orthopnea, paroxysmal noc. dyspnea Genitourinary: denies: dysuria, frequency, incontinence, hematuria, retention - Medication Medications: Active Medications Generic Name Dose Route Start Last Admin Trade Name Freq PRN Reason Stop Dose Admin Hydrocodone Bitart/Acetaminophen 2 tab 07/24/19 10:18 07/26/19 08:47 [place] 5/325 PO 2 tab Q4H PRN Administration Severe Pain (7-10) Amiodarone HCl 400 mg 07/26/19 11:15 07/26/19 12:32 Cordarone PO 07/26/19 13:15 400 mg NOW DARIO Administration Atorvastatin Calcium 20 mg 07/24/19 21:00 07/25/19 19:53 Lipitor PO 20 mg QPM DARIO Administration Amiodarone HCl 450 mg/ 259 mls @ 0 mls/hr 07/26/19 02:30 07/26/19 09:08 Miscellaneous Medication 1 IVPB 07/26/19 18:00 259 mls each/ Dextrose/Water INF DARIO Administration Protocol As Directed Ondansetron HCl 4 mg 07/24/19 10:18 07/25/19 06:22 Zofran IVP 4 mg Q6H PRN Administration Nausea/Vomiting - Exam General Appearance: NAD Eye: anicteric sclera ENT: no oropharyngeal lesions, moist mucosa Neck: supple Heart: RRR, no rubs Respiratory: CTAB Gastrointestinal: soft, non-tender Extremities: no edema Skin: no rashes Psychiatric: normal affect, normal behavior Hosp A/P (1) Chest pain Code(s): R07.9 - CHEST PAIN, UNSPECIFIED Status: Acute (2) Dyslipidemia Code(s): E78.5 - HYPERLIPIDEMIA, UNSPECIFIED Status: Chronic (3) Essential hypertension Code(s): I10 - ESSENTIAL (PRIMARY) HYPERTENSION Status: Chronic - Plan s/p CABG, POD#2 HTN controlled Pt is on aspirin and Lipitor. transfer to telemetry floor.
--- NOTE | 2019-07-26 15:27 | CON ---
DATE OF CONSULTATION: HISTORY OF PRESENT ILLNESS: Zoey Ying is a 78-year-old male, patient of Dr. Corbett. He was evaluated by Dr. Corbett for exertional chest discomfort that had been occurring for the last several weeks. This is a pressure type discomfort that would occur with exertion, lasts 5 minutes. He also did get diaphoresis with this and some radiation into his neck. This started to occur with less exertion. He underwent evaluation in Dr. Corbett's office with an echocardiogram, which revealed ejection fraction of 55% with evidence of diastolic dysfunction. The anterior apical wall was hypokinetic. Carotid Doppler only showed minimal amount of plaque. No significant stenosis. He underwent cardiac PET scan, which revealed moderate-sized area of ischemia involving the anterior apical wall with no evidence of scar. He then underwent cardiac catheterization on July 22. This revealed severe subtotal LAD ostial calcified stenosis and normal left ventricular function. He was transferred to [facility] and today underwent CABG x1 with MENDES to the LAD. This was performed with cardiopulmonary bypass. He now is in the unit, extubated. He is somewhat drowsy, but denies any shortness of breath and complains of mild chest discomfort. PAST MEDICAL HISTORY: Hypertension, hypercholesterolemia, and possible diabetes. PAST SURGICAL HISTORY: Tonsillectomy and knee arthroscopy of the right knee. MEDICATIONS: 1. Aspirin daily. 2. Carvedilol 3.125 b.i.d. 3. Lisinopril 20 daily. 4. Atorvastatin 40 mg at bedtime. ALLERGIES: NONE. SOCIAL HISTORY: He smoked in the past. REVIEW OF SYSTEMS: Unremarkable. PHYSICAL EXAMINATION: VITAL SIGNS: Blood pressure 101/68 and pulse of 65, sinus rhythm. HEENT: PERRLA. NECK: Supple. CHEST: Clear. CARDIAC: S1 and S2 normal without any S3, S4, or murmurs. ABDOMEN: Normal bowel sounds without tenderness or organomegaly. EXTREMITIES: Revealed no clubbing, cyanosis, or edema. NEUROLOGIC: Grossly intact. SKIN: Warm and dry. LABORATORY DATA: EKG revealed normal sinus rhythm with low voltage. Hemoglobin 11.8, hematocrit 35.4, white count 7500, and platelets 75,000. INR 1.4. Sodium 138, potassium 4.4, chloride 110, carbon dioxide 26, BUN 17, and creatinine 0.83. Cholesterol 132, triglycerides 110, HDL 38, and LDL 72. IMPRESSION: 1. Status post coronary artery bypass grafting x1 with left internal mammary artery to the left anterior descending using cardiopulmonary bypass. 2. Hypertension. 3. Hypercholesterolemia under poor control with LDL of 72. 4. Probable diabetes. 5. Former smoker. PLAN: The patient will be continued to be monitored. We will discuss low-cholesterol diet as he continues to recover from his bypass surgery. Job ID: [id number] [facility]IE[facility] MEDICAL CENTERLaurence
[2019-07-26] MEDS: Amiodarone 200 MG TAB PO SCH (20:07)
[2019-07-26] MEDS: Atorvastatin Calcium 20 MG TAB PO SCH (20:07)
[2019-07-26] MEDS: Famotidine 20 MG TAB PO SCH (20:08)
--- NOTE | 2019-07-27 00:14 | EKG ---
Test Reason : POST CABG Blood Pressure : / mmHG Vent. Rate : 082 BPM Atrial Rate : 082 BPM P-R Int : 184 ms QRS Dur : 092 ms QT Int : 396 ms P-R-T Axes : 054 045 068 degrees QTc Int : 462 ms Normal sinus rhythm Possible Inferior infarct , age undetermined Abnormal ECG No previous ECGs available Confirmed by Ene ROCA ([id number]) on 07/27/2019 12:14:06 AM Referred By: DULCE Confirmed By:Ene ROCA
[2019-07-27] MEDS ORDERED: Digoxin 0.5 MG/2 ML AMP ONE (08:30)
[2019-07-27] MEDS: Potassium Chloride 10 MEQ TAB PO SCH (08:31)
[2019-07-27] MEDS: Famotidine 20 MG TAB PO SCH ×2 (08:31→21:06)
[2019-07-27] MEDS: Metoprolol Tartrate 25 MG TAB PO SCH ×2 (08:31→21:06)
[2019-07-27] MEDS: Aspirin 325 mg Enteric Coated Tablet PO SCH (08:31)
[2019-07-27] MEDS: Furosemide 20 MG TAB PO SCH (08:31)
[2019-07-27] MEDS: Polyethylene Glycol 3350 17 GM Packet PO SCH (08:31)
[2019-07-27] MEDS: Amiodarone 200 MG TAB PO SCH (08:32)
[2019-07-27] MEDS ORDERED: Furosemide 40 MG TAB PO SCH (09:00)
[2019-07-27] MEDS ORDERED: Amiodarone 450 MG, Admixture Fee 1 EACH in Dextrose 5% in Water 250 ML IVPB SCH (09:00)
[2019-07-27] MEDS ORDERED: Digoxin 0.5 MG/2 ML AMP SLOW IVP SCH (09:00)
[2019-07-27] MEDS: HYDROcodone/Acetaminophen 5/325 mg Tablet PO PRN ×2 (10:25→16:18)
[2019-07-27 14:59] LABS: #Eosinphils 0.2 thou/uL (0.0-0.7); #Lymphocytes 1.6 thou/uL (1.20-3.40); #Monocytes 1.2 thou/uL (0.11-0.59); #Neutrophils 5.4 thou/uL (1.40-6.50); %Basophils 0.4 % (0.0-1.0); %Eosinophils 2.1 % (0.0-10.0); %Lymphocytes 18.7 % (21.0-51.0); %Monocytes 14.2 % (0.0-10.0); %Neutrophils 64.6 % (42.0-75.0); Hemoglobin 10.1 g/dL (14.0-18.0); Mean Corpuscular HGB CONC 33.6 g/dL (32.0-36.0); Mean Corpuscular Hemoglobin 34.3 pg (27.0-31.0); Mean Platelet Volume 9.5 fL (7.4-10.4); Platelet Count 105 thou/uL (130-400); RBC Distribution Width 12.2 % (11.5-14.5); Red Blood Cell (RBC) Count 2.96 mill/uL (4.70-6.10); White Blood Cell (WBC) Count 8.4 thou/uL (4.8-10.8)
[2019-07-27 15:18] LABS: Anion Gap 8 mmol/L (10-20); BUN (Urea Nitrogen) 18 mg/dL (8.4-25.7); Calc. Creatinine Clearance 91 mL/min (70-130); Calcium 7.6 mg/dL (7.8-10.44); Carbon Dioxide 25 mmol/L (23-31); Chloride 106 mmol/L (98-107); Estimated GFR-MDRD Greater than 90; Glucose 111 mg/dL (83-110); Potassium 4.5 mmol/L (3.5-5.1); Sodium 134 mmol/L (136-145)
[2019-07-27] MEDS: Ondansetron PF 4 MG/2 ML Vial IVP PRN (16:19)
--- NOTE | 2019-07-27 20:03 | PDOC.HOSPP ---
- Subjective Encounter Date: 07/27/19 Encounter Time: 12:00 Subjective: Pt seen for followup re: atrial flutter. Denies chest pain or shortness of breath. - Objective Vital Signs & Weight: Vital Signs (12 hours) Temp Pulse Pulse Pulse Resp BP BP 07/27/19 16:04 97.9 F 77 18 07/27/19 13:54 77 16 07/27/19 12:15 83 96 93/54 L 87/55 L 07/27/19 09:55 98.8 F 105 H 18 07/27/19 09:33 103 H 119 H 95/68 07/27/19 08:56 125 H 07/27/19 08:32 125 H BP Pulse Ox Pulse Ox Pulse Ox 07/27/19 16:04 101/59 L 95 07/27/19 13:54 89/65 L 92 L 07/27/19 12:15 95 91 L 07/27/19 09:55 125/79 95 07/27/19 09:33 07/27/19 08:56 07/27/19 08:32 Weight Weight 180 lb 15.992 oz Most Recent Monitor Data Heart Rate from ECG 106 NIBP 100/78 NIBP BP-Mean 85 Respiration from ECG 25 SpO2 99 I&O: 07/26/19 07/27/19 07/28/19 06:59 06:59 06:59 Intake Total 1936 2443 250 Output Total 1200 2545 0 Balance 736 -102 250 Result Diagrams: 07/27/19 14:40 07/27/19 14:40 Additional Labs: Accuchecks 07/24/19 10:12 POC Glucose 134 H Labs and MARs reviewed by me EKG Reviewed by me: Yes (Tele: atrial flutter) Hospitalist ROS - Review of Systems Cardiovascular: denies: chest pain, palpitations, orthopnea, paroxysmal noc. dyspnea, edema, light headedness Gastrointestinal: denies: nausea, vomiting, abdominal pain, diarrhea, constipation, melena, hematochezia - Medication Medications: Active Medications Generic Name Dose Route Start Last Admin Trade Name Freq PRN Reason Stop Dose Admin Hydrocodone Bitart/Acetaminophen 1 tab 07/24/19 10:18 07/26/19 20:08 [place] 5/325 PO 1 tab Q4H PRN Administration Moderate Pain (4-6) Hydrocodone Bitart/Acetaminophen 2 tab 07/24/19 10:18 07/27/19 16:18 [place] 5/325 PO 2 tab Q4H PRN Administration Severe Pain (7-10) Aspirin 325 mg 07/27/19 09:00 07/27/19 08:31 Ecotrin PO 325 mg DAILY DARIO Administration Atorvastatin Calcium 20 mg 07/24/19 21:00 07/26/19 20:07 Lipitor PO 20 mg QPM DARIO Administration Famotidine 20 mg 07/26/19 21:00 07/27/19 08:31 Pepcid PO 20 mg BID DARIO Administration Furosemide 20 mg 07/27/19 09:00 07/27/19 08:31 Lasix PO 20 mg DAILY DARIO Administration Metoprolol Tartrate 6.25 mg 07/27/19 09:00 07/27/19 08:31 Lopressor PO 6.25 mg BID DARIO Administration Ondansetron HCl 4 mg 07/24/19 10:18 07/27/19 16:19 Zofran IVP 4 mg Q6H PRN Administration Nausea/Vomiting Polyethylene Glycol 17 gm 07/27/19 09:00 07/27/19 08:31 Miralax PO 17 gm DAILY DARIO Administration Potassium Chloride 10 meq 07/27/19 08:00 07/27/19 08:31 Klor-Con 10 PO 10 meq QAM-WM DARIO Administration - Exam General Appearance: NAD Eye: anicteric sclera ENT: no oropharyngeal lesions Neck: supple, symmetric Heart: RRR Respiratory: CTAB Gastrointestinal: non-tender, non-distended Psychiatric: normal affect, normal behavior Hosp A/P (1) Atrial flutter Code(s): I48.92 - UNSPECIFIED ATRIAL FLUTTER Status: Acute (2) Chest pain Code(s): R07.9 - CHEST PAIN, UNSPECIFIED Status: Acute (3) Dyslipidemia Code(s): E78.5 - HYPERLIPIDEMIA, UNSPECIFIED Status: Chronic (4) Essential hypertension Code(s): I10 - ESSENTIAL (PRIMARY) HYPERTENSION Status: Chronic - Plan Consult EP service re: a. flutter. Amio drip discontinued due to hypotension. s/p CABG, POD#3 HTN controlled Continue aspirin and Lipitor.
[2019-07-27] MEDS: Atorvastatin Calcium 20 MG TAB PO SCH (21:06)
[2019-07-28] MEDS: Metoprolol Tartrate 25 MG TAB PO SCH ×2 (05:52→22:19)
[2019-07-28] MEDS: Potassium Chloride 10 MEQ TAB PO SCH (08:39)
[2019-07-28] MEDS: Famotidine 20 MG TAB PO SCH ×2 (08:40→22:18)
[2019-07-28] MEDS: Furosemide 20 MG TAB PO SCH (08:40)
[2019-07-28] MEDS: Aspirin 325 mg Enteric Coated Tablet PO SCH (08:40)
[2019-07-28] MEDS: Polyethylene Glycol 3350 17 GM Packet PO SCH (08:42)
[2019-07-28] MEDS ORDERED: Lidocaine 1% (PF) 30 ML VIAL ONE (12:52)
[2019-07-28] MEDS ORDERED: Heparin (Artline) 1,000 ML ONE (12:52)
[2019-07-28] MEDS ORDERED: PHENYLEPHRINE-NS 100 MCG/ML 10 ML SYRINGE ONE (13:04)
[2019-07-28] MEDS ORDERED: ePHEDrine/0.9% NaCl/PF SYRINGE 50 mg/10 ml ONE (13:04)
[2019-07-28] MEDS ORDERED: Heparin 10,000 UNITS/1 ML VIAL ONE ×2 (13:19→13:58)
[2019-07-28] MEDS ORDERED: Heparin (Artline) 500 ML ONE (13:19)
[2019-07-28] MEDS ORDERED: Fentanyl 100 MCG/2 ML VIAL ONE (13:27)
[2019-07-28] MEDS ORDERED: Propofol 1,000 MG/100 ML VIAL IV ONE (13:27)
[2019-07-28] MEDS ORDERED: Midazolam HCl 2 mg/2 ml Vial ONE (13:27)
[2019-07-28] MEDS ORDERED: Isoproterenol 0.2 MG/1 ML AMP ONE (14:13)
[2019-07-28] MEDS ORDERED: Protamine Sulfate 50 MG/5 ML VIAL ONE (14:15)
--- NOTE | 2019-07-28 20:30 | PDOC.HOSPP ---
- Subjective Encounter Date: 07/28/19 Encounter Time: 10:40 Subjective: Pt seen for followup re: atrial flutter. Denies any complaints. - Objective Vital Signs & Weight: Vital Signs (12 hours) Temp Pulse Resp BP Pulse Ox 07/28/19 15:20 98.0 F 81 17 95/62 95 07/28/19 11:53 99.2 F 79 16 93/56 L 93 L Weight Weight 170 lb 8 oz Most Recent Monitor Data Heart Rate from ECG 106 NIBP 100/78 NIBP BP-Mean 85 Respiration from ECG 25 SpO2 99 I&O: 07/27/19 07/28/19 07/29/19 06:59 06:59 06:59 Intake Total 2443 790 240 Output Total 2545 925 600 Balance -102 135 -360 Result Diagrams: 07/27/19 14:40 07/27/19 14:40 Additional Labs: Labs and MARs reviewed by me EKG Reviewed by me: Yes (Tele: willi abbott) Hospitalist ROS - Review of Systems Respiratory: denies: cough, shortness of breath, SOB with excertion, pleuritic pain, wheezing Cardiovascular: denies: chest pain, palpitations, orthopnea, paroxysmal noc. dyspnea, edema, light headedness - Medication Medications: Active Medications Generic Name Dose Route Start Last Admin Trade Name Freq PRN Reason Stop Dose Admin Hydrocodone Bitart/Acetaminophen 1 tab 07/24/19 10:18 07/26/19 20:08 [place] 5/325 PO 1 tab Q4H PRN Administration Moderate Pain (4-6) Hydrocodone Bitart/Acetaminophen 2 tab 07/24/19 10:18 07/27/19 16:18 [place] 5/325 PO 2 tab Q4H PRN Administration Severe Pain (7-10) Aspirin 325 mg 07/27/19 09:00 07/28/19 08:40 Ecotrin PO 325 mg DAILY DARIO Administration Atorvastatin Calcium 20 mg 07/24/19 21:00 07/27/19 21:06 Lipitor PO 20 mg QPM DARIO Administration Famotidine 20 mg 07/26/19 21:00 07/28/19 08:40 Pepcid PO 20 mg BID DARIO Administration Furosemide 20 mg 07/27/19 09:00 07/28/19 08:40 Lasix PO 20 mg DAILY DARIO Administration Metoprolol Tartrate 6.25 mg 07/27/19 09:00 07/28/19 05:52 Lopressor PO 6.25 mg BID DARIO Administration Ondansetron HCl 4 mg 07/24/19 10:18 07/27/19 16:19 Zofran IVP 4 mg Q6H PRN Administration Nausea/Vomiting Polyethylene Glycol 17 gm 07/27/19 09:00 07/28/19 08:42 Miralax PO Not Given DAILY DARIO Potassium Chloride 10 meq 07/27/19 08:00 07/28/19 08:39 Klor-Con 10 PO 10 meq QAM-WM DARIO Administration - Exam General - other findings: Obese Eye: anicteric sclera ENT: moist mucosa Neck: supple, symmetric Heart: RRR, no rubs Respiratory: CTAB Gastrointestinal: soft, non-tender Extremities: no clubbing Psychiatric: normal affect, normal behavior Hosp A/P (1) Atrial flutter Code(s): I48.92 - UNSPECIFIED ATRIAL FLUTTER Status: Acute (2) Chest pain Code(s): R07.9 - CHEST PAIN, UNSPECIFIED Status: Acute (3) Dyslipidemia Code(s): E78.5 - HYPERLIPIDEMIA, UNSPECIFIED Status: Chronic (4) Essential hypertension Code(s): I10 - ESSENTIAL (PRIMARY) HYPERTENSION Status: Chronic - Plan ? ablation today for a. flutter. s/p CABG, POD#4 HTN controlled Pt is on aspirin and Lipitor, continue.
--- NOTE | 2019-07-28 21:07 | EKG ---
Test Reason : STAT Blood Pressure : / mmHG Vent. Rate : 120 BPM Atrial Rate : 131 BPM P-R Int : 000 ms QRS Dur : 094 ms QT Int : 296 ms P-R-T Axes : 000 003 052 degrees QTc Int : 418 ms Atrial fibrillation with rapid ventricular response Nonspecific ST and T wave abnormality Abnormal ECG When compared with ECG of 24-JUL-2019 10:38, Atrial fibrillation has replaced Sinus rhythm ST no longer depressed in Anterior leads T wave inversion no longer evident in Anterior leads T wave amplitude has decreased in Lateral leads Confirmed by Ene ROCA ([id number]) on 07/28/2019 9:06:40 PM Referred By: HARRIS Confirmed By:Ene ROCA
--- NOTE | 2019-07-28 21:26 | OP ---
DATE OF PROCEDURE: 07/28/2019 PROCEDURES PERFORMED: 1. Comprehensive EP testing with 3D mapping and ablation of typical atrial flutter. 2. Intracardiac echocardiography. CLINICAL INDICATION: Typical atrial flutter. ASA CLASSIFICATION: 3. ANESTHESIA: Total IV anesthesia per Anesthesiology. ADDITIONAL CARDIAC MEDICATIONS: None. ESTIMATED BLOOD LOSS: Less than 10 mL. TOTAL FLUORO TIME: Zero. TOTAL ABLATION TIME: 2 minutes and 13 seconds. ACUTE COMPLICATIONS: None apparent. METHODS: After informed consent was obtained, the patient was taken to the EP lab in a fasting state. Both groins were prepped and draped using ultrasound guidance. The right and left femoral veins were accessed, and wires were inserted into the central venous system. An 11- and 8-[place] sheaths were placed in left groin, two 8-[place] sheaths were placed in the right groin. All 8-[place] sheaths were then replaced by long sheaths for catheter stability. An echo probe was placed in left groin, advanced to the right atrium and right ventricle for imaging. Circular and PentaRay were placed in the right groin advanced up to the right atrium. A 3D map was obtained of the right atrium and a coronary sinus. A 20-pole catheter was placed in left groin, advanced up to the coronary sinus. Program stimulation was performed and pacing within the flutter circuit confirming until entrainment. Ablation was delivered, terminating flutter. Additional lesions were required to result in bidirectional block after an observation period. Catheters were withdrawn. Sheaths were pulled. Hemostasis was achieved with direct pressure. RESULTS: 1. Baseline intervals: Flutter cycling 210 milliseconds, HV interval of 60 milliseconds. 2. Atrial function: The patient was in counter-clockwise typical isthmus dependent flutter. Ablation was delivered in the CTI flutter area, terminating flutter. Bidirectional block was confirmed at the conclusion of the ablation. 3. Pericardial status: The patient had a small to moderate pericardial effusion, likely from previous surgery. This did not change during the procedure. 4. Ablation details: A total of 2 minutes and 13 seconds of radiofrequency current were delivered using a Biosense Cam open-irrigated, contact force, sensor enabled ablation catheter, terminating flutter. IMPRESSION: Successful ablation of typical atrial flutter. RECOMMENDATIONS: Begin oral anticoagulation for 3 weeks when cleared by Cardiovascular Surgery. Job ID: [id number]
[2019-07-28] MEDS: Amiodarone 200 MG TAB PO SCH (22:18)
[2019-07-28] MEDS: Atorvastatin Calcium 20 MG TAB PO SCH (22:18)
--- NOTE | 2019-07-29 07:50 | CON ---
DATE OF CONSULTATION: REFERRING PHYSICIAN: Dr. Stein. REASON FOR CONSULTATION: Atrial flutter. HISTORY OF PRESENT ILLNESS: Mr. Ying is a 78-year-old gentleman, who recently underwent a single-vessel coronary artery bypass grafting, MENDES to LAD. He had initially been hospitalized at [facility] for chest pain and underwent heart catheterization, that showed a 90% LAD stenosis, prompting a CABG. Since his bypass, he was seen to have atrial arrhythmias and was started on amiodarone. With IV amiodarone loading, he became hypotensive and amiodarone was stopped. Initially, it did restore sinus rhythm, but we now find that he is back in atrial flutter that is thought to be typical in origin. Mr. Ying is currently feeling fairly well despite some weakness and ongoing pain from his recent bypass surgery. He denies any heart racing, palpitations, chest pain, pressure, syncope, near syncope, stroke, or stroke-like symptoms. REVIEW OF SYSTEMS: A 12-point review of systems is negative except that listed above in HPI. PAST MEDICAL HISTORY: 1. Coronary artery disease status post single-vessel bypass on 07/24/2019. 2. Remote history of smoking. 3. Arthroscopy of the right knee. 4. Tonsillectomy. 5. Left heart catheterization in 06/2019, showing 90% proximal LAD lesion, left dominant system with normal OM, normal left PDA, and nondominant right. 6. Normal ejection fraction of 55% by echo on 07/07. 7. Carotid ultrasound on 07/22 showing minimal plaquing and no significant stenosis. ALLERGIES: NO KNOWN DRUG ALLERGIES. DICTATED BY WANDA ELLISON PA-C, SCRIBE FOR DR. WILNER GRIGSBY. HOME MEDICATIONS: Include: 1. Aspirin daily. 2. Coreg 3.125 mg b.i.d. 3. Lipitor 40 mg daily. 4. Zestril 20 mg daily. SOCIAL HISTORY: Remote history of tobacco habituation, but has not smoked in many years. He is for 10 years. His passed from pulmonary fibrosis. He worked in a [employer] in [place], and moved to [place] approximately 15 years ago. FAMILY HISTORY: Noncontributory. Denies early-onset CAD or sudden cardiac . OBJECTIVE: VITAL SIGNS: Temperature 98.8, pulse 105, blood pressure 125/79, respirations 18, and oxygen is 95% on room air. GENERAL: The patient is alert and oriented. Speech is clear. Affect is appropriate. He is predominantly Qatari-speaking and this interview was conducted in Qatari. He reports some sternal discomfort with movement, though no extreme or limiting pain at this point. NECK: Supple. There is no significant jugular venous distention. No signs of cardiac tamponade. HEART: Irregular and slightly rapid. PMI is nondisplaced. LUNGS: Clear to auscultation in the left. There are some faint crackles on the right lower lobe. Otherwise, lung lerner are clear. Respirations are even and unlabored with good bilateral excursion. ABDOMEN: Soft and nontender without palpable masses. EXTREMITIES: Warm and dry to touch and well perfused without clubbing, cyanosis, or edema. NEUROLOGIC: Grossly intact. Nonfocal. Gait was not assessed. LABORATORY DATA: Hematology shows hemoglobin of 10.0, hematocrit of 29.3, platelet count is 81. Coagulation panel within normal limits. Chemistry panel: Potassium 4.1 and creatinine 0.76. Hemoglobin A1c of 5.6. TSH 3.9. Telemetry and EKGs currently show atrial flutter suggestive of cavotricuspid isthmus dependent flutter, largely with a controlled rate between 80 and 100 beats per minute, previously in sinus rhythm with the addition of amiodarone. IMPRESSION: 1. Atrial flutter, possibly typical/cavotricuspid isthmus dependent, seen post bypass. 2. Coronary artery disease status post single-vessel bypass to the LAD on 07/24/2019. 3. CHADS-VASc score of 3 on the basis of advanced age and vascular disease, currently not on anticoagulation. 4. Preserved left ventricular ejection fraction by echo on 07/07/2019. 5. Hypotension, provoked by IV amiodarone. PLAN AND RECOMMENDATIONS: Mr. Ying is a pleasant 78-year-old gentleman with a history of severe coronary artery disease, who underwent a single-vessel bypass [address] Townsend[address] Since the time of his bypass, he was transferred to [facility] in [place] as he developed atrial arrhythmias with RVR. He was placed on amiodarone, which resulted in significant hypotension and amiodarone was stopped. Initially, amiodarone had converted him to sinus rhythm, but with the cessation of amiodarone, he converted into atrial flutter that does appear to be cavotricuspid isthmus dependent. I had a long discussion with Mr. Ying and his significant other regarding treatment options for atrial arrhythmias including cardioversion, antiarrhythmic therapy, and ablation. At this point, I recommend ablation for this likely typical flutter. I discussed the risks, benefits, and the possible risks associated including hematoma, bleeding at the groin site, bleeding around the heart, possible need for chest tube, possible need for redo ablation, and risk for additional arrhythmias. Prior to undergoing ablation, my plan is to recheck an echocardiogram to make sure there is no significant effusion following the recent bypass also in light of his recent significant hypotension. The patient voices understanding and wishes to proceed with the ablation, which can possibly be arranged for tomorrow afternoon. Thank you for allowing me to participate in the care of this patient. We will make arrangements for his flutter ablation this day in the near future. Job ID: [id number]
[2019-07-29] MEDS: Potassium Chloride 10 MEQ TAB PO SCH (08:17)
[2019-07-29] MEDS: Amiodarone 200 MG TAB PO SCH ×2 (08:17→21:29)
[2019-07-29] MEDS: Aspirin 325 mg Enteric Coated Tablet PO SCH (08:17)
[2019-07-29] MEDS: Famotidine 20 MG TAB PO SCH ×2 (08:18→21:29)
[2019-07-29] MEDS: Furosemide 20 MG TAB PO SCH (08:18)
[2019-07-29] MEDS: Polyethylene Glycol 3350 17 GM Packet PO SCH (08:18)
[2019-07-29] MEDS: Metoprolol Tartrate 25 MG TAB PO SCH ×2 (08:20→21:29)
--- NOTE | 2019-07-29 15:10 | PDOC.HOSPP ---
- Subjective Encounter Date: 07/29/19 Encounter Time: 11:30 Subjective: pt up in bed no complains. s/p ablation. - Objective Vital Signs & Weight: Vital Signs (12 hours) Temp Pulse Pulse Pulse Resp BP BP 07/29/19 11:10 97.6 F 77 17 07/29/19 08:35 93 80 122/63 122/67 07/29/19 07:29 98.0 F 81 18 07/29/19 03:15 98.1 F 86 18 BP Pulse Ox 07/29/19 11:10 102/57 L 97 07/29/19 08:35 07/29/19 07:29 114/61 92 L 07/29/19 03:15 116/60 92 L Weight Weight 171 lb 9.6 oz Most Recent Monitor Data Heart Rate from ECG 106 NIBP 100/78 NIBP BP-Mean 85 Respiration from ECG 25 SpO2 99 I&O: 07/28/19 07/29/19 07/30/19 06:59 06:59 06:59 Intake Total 790 360 Output Total 925 850 Balance -135 -490 Result Diagrams: 07/27/19 14:40 07/27/19 14:40 Hospitalist ROS - Review of Systems Cardiovascular: denies: chest pain, palpitations, orthopnea, paroxysmal noc. dyspnea, edema, light headedness, other Gastrointestinal: denies: nausea, vomiting, abdominal pain, diarrhea, constipation, melena, hematochezia, other Genitourinary: denies: dysuria, frequency, incontinence, hematuria, retention, other - Medication Medications: Active Medications Generic Name Dose Route Start Last Admin Trade Name Freq PRN Reason Stop Dose Admin Hydrocodone Bitart/Acetaminophen 1 tab 07/24/19 10:18 07/26/19 20:08 [place] 5/325 PO 1 tab Q4H PRN Administration Moderate Pain (4-6) Hydrocodone Bitart/Acetaminophen 2 tab 07/24/19 10:18 07/27/19 16:18 [place] 5/325 PO 2 tab Q4H PRN Administration Severe Pain (7-10) Amiodarone HCl 200 mg 07/28/19 21:00 07/29/19 08:17 Cordarone PO 200 mg BID DARIO Administration Aspirin 325 mg 07/27/19 09:00 07/29/19 08:17 Ecotrin PO 325 mg DAILY DARIO Administration Atorvastatin Calcium 20 mg 07/24/19 21:00 07/28/19 22:18 Lipitor PO 20 mg QPM DARIO Administration Famotidine 20 mg 07/26/19 21:00 07/29/19 08:18 Pepcid PO 20 mg BID DARIO Administration Furosemide 20 mg 07/27/19 09:00 07/29/19 08:18 Lasix PO 20 mg DAILY DARIO Administration Metoprolol Tartrate 6.25 mg 07/27/19 09:00 07/29/19 08:20 Lopressor PO 6.25 mg BID DARIO Administration Ondansetron HCl 4 mg 07/24/19 10:18 07/27/19 16:19 Zofran IVP 4 mg Q6H PRN Administration Nausea/Vomiting Polyethylene Glycol 17 gm 07/27/19 09:00 07/29/19 08:18 Miralax PO 17 gm DAILY DARIO Administration Potassium Chloride 10 meq 07/27/19 08:00 07/29/19 08:17 Klor-Con 10 PO 10 meq QAM-WM DARIO Administration - Exam Neck: negative: supple, symmetric, no JVD, no thyromegaly, no lymphadenopathy, no carotid bruit, JVD Heart: negative: RRR, no murmur, no gallops, no rubs, normal peripheral pulses, irregular, diminshed peripheral pulses, murmur present, II/IV, III/IV Respiratory: negative: CTAB, no wheezes, no rales, no ronchi, normal chest expansion, no tachypnea, normal percussion, rales, rhonchi, tachypneic, wheezes Gastrointestinal: negative: soft, non-tender, non-distended, normal bowel sounds , no palpable masses, no hepatomegaly, no splenomegaly, no bruit, no guarding, no rigidity, tender to palpation, distended, diminished bowl sounds, voluntary guarding Hosp A/P (1) Atrial flutter Code(s): I48.92 - UNSPECIFIED ATRIAL FLUTTER Status: Acute (2) Chest pain Code(s): R07.9 - CHEST PAIN, UNSPECIFIED Status: Acute (3) Unstable angina Status: Acute (4) Essential hypertension Code(s): I10 - ESSENTIAL (PRIMARY) HYPERTENSION Status: Chronic (5) Hyperglycemia Code(s): R73.9 - HYPERGLYCEMIA, UNSPECIFIED Status: Chronic - Plan post op day #5, s/p ablation. will monitor. possible home in am. will start pt on AC if ok with CV surgery. Per EP will need for 3 weeks.
[2019-07-29] MEDS: Atorvastatin Calcium 20 MG TAB PO SCH (21:30)
[2019-07-29] MEDS: Apixaban 5 MG TAB PO SCH (21:31)
[2019-07-30] MEDS: Cepastat Lozenges 1 LOZ PO PRN ×2 (01:09→08:09)
[2019-07-30] MEDS ORDERED: Carvedilol 3.125 MG TAB PO SCH (08:00)
[2019-07-30 08:06] VITALS: BP 121/71; TEMP 97.8
[2019-07-30] MEDS: Famotidine 20 MG TAB PO SCH (08:08)
[2019-07-30] MEDS: Amiodarone 200 MG TAB PO SCH (08:08)
[2019-07-30] MEDS: Apixaban 5 MG TAB PO SCH (08:08)
[2019-07-30] MEDS: Polyethylene Glycol 3350 17 GM Packet PO SCH (08:09)
--- NOTE | 2019-07-30 08:51 | PRG ---
DATE OF SERVICE: SUBJECTIVE: Mr. Ying seems to be doing well one day after his CTI ablation procedure. He denies PND or orthopnea. No groin site issues. No chest pains. He continues to recover from his bypass surgery. OBJECTIVE DATA: VITAL SIGNS: Blood pressure is 102/57, heart rate 77, respiratory rate 17, temperature 97.6 degrees Fahrenheit. GENERAL: Alert and oriented man, in no apparent distress. NECK: Supple. Jugular veins not distended. CHEST: Coarse without crackles. HEART: Sounds are regular to rate and rhythm. No murmur or gallop. ABDOMEN: Benign. Bowel sounds positive. EXTREMITIES: Lower extremities without edema, clubbing, or cyanosis. The right femoral venous catheter insertion site is without reaction. DATABASE: Telemetry strips reviewed revealing continued sinus rhythm since the flutter ablation. The 2D echo from 07/28/2019 reveals small/trivial pericardial effusion, __EF 50 to 55%, mild MR and mild TR prior to the ablation. The EP study ablation report reveals typical isthmus dependent atrial flutter promptly terminated with CTI ablation, also small pericardial effusion without change. LABORATORY DATA: None new. ASSESSMENT: Mr. Ying is 78-year-old man, who underwent coronary artery bypass grafting surgery recently, has had difficult rhythm control with episodes of atrial fibrillation and then atrial flutter despite of continued amiodarone therapy. He underwent cavotricuspid isthmus ablation by my partner, Dr. Neil yesterday, which he seems to have recovered well. He is maintaining sinus rhythm, although he was noted to have a moderate pericardial effusion, it has not changed with the ablation, likely related to prior bypass surgery. PLAN: 1. At this point, I would continue short-term amiodarone suppression with p.o. dosing, hence, the patient has a history of atrial fibrillation. 2. Anticoagulation could be reasonable, although, hence the pericardial effusion , we will leave it up to CV surgery. He will follow up in the office in about 6 weeks requested and consideration amiodarone therapy could be made around that time. Risks and benefits of amiodarone therapy are discussed. Thank you again for allowing me to participate in the care of this patient. Job ID: [id number] MTDD
[2019-07-30] MEDS ORDERED: Aspirin 81 mg Enteric Coated Tablet PO SCH (09:00)
--- NOTE | 2019-07-30 09:34 | DIS ---
DATE OF ADMISSION: 07/23/2019 DATE OF DISCHARGE: 07/30/2019 HOSPITAL COURSE: The patient was admitted, underwent coronary artery bypass grafting, MENDES to LAD on 07/24. Postoperatively, he developed transient atrial fibrillation, which resolved, but then he developed atrial flutter and underwent a flutter ablation on 07/28. He will be discharged home on 07/30 on a one month supply of amiodarone 200 b.i.d., Eliquis 5 b.i.d. His Coreg will be decreased to 3.125 mg half tablet b.i.d., resume his atorvastatin 40 a day. Continue his aspirin 81 mg a day and receive a prescription for tramadol. He has been asked to hold his lisinopril because his blood pressure postoperatively has been about 100. Discharge and followup instructions were given. Job ID: [id number]
[2019-07-30] MEDS ORDERED: Atorvastatin Calcium 40 MG TAB PO SCH (21:00)
== END 2019-07-30 10:35 | disposition home or self-care (01) | DRG 236 ==
LOC: 2NO 15:23 → CCU 07-24 07:35 → 2NO 07-27 10:22
PROVIDERS: ADMIT Internal Medicine; ATTEND Thoracic Surgery (Cardiothoracic Vascular Surgery)
PROC: 02100Z9 Bypass Coronary Artery, One Artery from Left Internal Mammary, Open Approach (ICD-10-PCS; principal; 2019-07-24)
PROC: 5A1221Z Performance of Cardiac Output, Continuous (ICD-10-PCS; 2019-07-24)
PROC: 02583ZZ Destruction of Conduction Mechanism, Percutaneous Approach (ICD-10-PCS; 2019-07-28)
PROC: 4A023FZ Measurement of Cardiac Rhythm, Percutaneous Approach (ICD-10-PCS; 2019-07-28)
PROC: 4A0234Z Measurement of Cardiac Electrical Activity, Percutaneous Approach (ICD-10-PCS; 2019-07-28)
PROC: 02K83ZZ Map Conduction Mechanism, Percutaneous Approach (ICD-10-PCS; 2019-07-28)
DX: I25.110 Atherosclerotic heart disease of native coronary artery with unstable angina pectoris (principal); I48.3 Typical atrial flutter; E78.5 Hyperlipidemia, unspecified; I10 Essential (primary) hypertension; E78.00 Pure hypercholesterolemia, unspecified; R73.9 Hyperglycemia, unspecified; I48.91 Unspecified atrial fibrillation; I95.2 Hypotension due to drugs; T46.2X5A Adverse effect of other antidysrhythmic drugs, initial encounter; Z87.891 Personal history of nicotine dependence; Z79.82 Long term (current) use of aspirin; Z79.899 Other long term (current) drug therapy
CPT/HCPCS: 36415; 36416; 36430; 71045; 80048; 80061; 82805; 83036; 83735; 83880; 84443; 84484; 85025; 85347; 85610; 85730; 86850; 86900; 86901; 93005; 93010; 93306; 93613; 93662; 93798; C1731; C1759; C1760; C1769; J0282; J0690; J1100; J1160; J1265; J1642; J1644; J1815; J1885; J2001; J2250; J2270; J2405; J2440; J2704; J2720; J3010; J3370; J3475; J3480; J7070; P9016; P9045; S0017; S0028

== ENCOUNTER 2019-08-01 20:23 | Inpatient (IN) | payer MEDICARE ==
--- NOTE | 2019-08-01 20:56 | RAD ---
XR Chest 1 View Portable HISTORY: Syncope COMPARISON: 08/05/2019 FINDINGS: The heart size is borderline but stable. Changes of median sternotomy again seen. The right -sided central venous catheter has been removed in the interim. Pleural-parenchymal changes in the left lower hemithorax are again seen..
[2019-08-01 21:05] LABS: INR-International Normal Ratio 2.3; PTT 32.6 SEC (22.9-36.1)
[2019-08-01 21:08] LABS: Hemoglobin 9.4 g/dL (14.0-18.0); Mean Corpuscular HGB CONC 32.4 g/dL (32.0-36.0); Mean Corpuscular Hemoglobin 34.4 pg (27.0-31.0); Mean Platelet Volume 8.3 fL (7.4-10.4); Platelet Count 159 thou/uL (130-400); RBC Distribution Width 12.8 % (11.5-14.5); Red Blood Cell (RBC) Count 2.73 mill/uL (4.70-6.10); White Blood Cell (WBC) Count 13.8 thou/uL (4.8-10.8)
[2019-08-01] MEDS ORDERED: Ondansetron PF 4 MG/2 ML Vial ONE (21:10)
[2019-08-01 21:12] LABS: Band 12 % (5-11); Lymphocytes 5 % (21-51); MDiff Complete? YES; Monocytes 5 % (0-10); Neutrophil 78 % (42-75); Platelet Morphology Comment Appears Adequate
[2019-08-01 21:34] LABS: Chloride 101 mmol/L (98-107); Potassium 6.3 mmol/L (3.5-5.1); Sodium 133 mmol/L (136-145)
[2019-08-01 21:37] LABS: Carbon Dioxide 10 mmol/L (23-31)
[2019-08-01 21:41] LABS: CKMB 1.9 ng/mL (0-6.6)
[2019-08-01 21:44] LABS: ALT (SGPT) 1457 U/L (8-55); AST (SGOT) 1538 U/L (5-34); Albumin 3.4 g/dL (3.4-4.8); Alkaline Phosphatase 143 U/L (40-110); BUN (Urea Nitrogen) 36 mg/dL (8.4-25.7); Bilirubin, Total 1.7 mg/dL (0.2-1.2); CK (CPK) 40 U/L (30-200); Calc. Creatinine Clearance 0 mL/min (70-130); Calcium 8.5 mg/dL (7.8-10.44); Estimated GFR-MDRD 44; Globulin 2.9 g/dL (2.4-3.5); Glucose 112 mg/dL (83-110); Protein, Total 6.3 g/dL (5.8-8.1)
[2019-08-01] MEDS ORDERED: CCU Electrolyte Replacement 1 EACH IVPB SCH (23:43)
[2019-08-01] MEDS ORDERED: Sodium Chloride 0.9% 1,000 ML IV SCH (23:45)
[2019-08-01] MEDS ORDERED: Potassium Chloride 40 MEQ in Sodium Chloride 0.9% 250 ML 250 ML IVPB PRN (23:48)
[2019-08-01] MEDS ORDERED: Potassium Chloride 20 MEQ TAB PO PRN (23:48)
[2019-08-01] MEDS ORDERED: Potassium Phosphate 9 MMOL in Sodium Chloride 0.9% 100 ML IVPB PRN (23:48)
[2019-08-01] MEDS ORDERED: Potassium Chloride 40 MEQ in Premix Bag 1 BAG IVPB PRN (23:48)
[2019-08-01] MEDS ORDERED: Magnesium Oxide 400 MG TAB PO PRN ×2 (23:48)
[2019-08-01] MEDS ORDERED: Potassium Phosphate 12 MMOL in Sodium Chloride 0.9% 250 ML 250 ML IV PRN (23:48)
[2019-08-01] MEDS ORDERED: Potassium Phosphate 15 MMOL in Sodium Chloride 0.9% 250 ML 250 ML IV PRN (23:48)
[2019-08-01] MEDS ORDERED: CCU ELECTROLYTE REPLACEMENT PROTOCOL FS PRN (23:48)
[2019-08-01] MEDS ORDERED: Magnesium 2 GM/50 ML 2 GM in Premix Bag 1 BAG IVPB PRN (23:48)
[2019-08-01] MEDS ORDERED: PHOS-NAK 1 PKT PACK PO PRN ×2 (23:48)
[2019-08-01] MEDS ORDERED: Piperacillin/Tazobactam 3.375 GM in Sodium Chloride 0.9% 100 ML IVPB SCH (23:59)
[2019-08-02] MEDS ORDERED: Dextrose 50% Abboject 50 ML SYRINGE SLOW IVP PRN (00:08)
[2019-08-02] MEDS ORDERED: Sodium Chloride 0.9% (PF) 10 ML VIAL FS PRN (00:23)
[2019-08-02] MEDS ORDERED: Dextrose 50 % In Water 50 ML SYRINGE IV SCH (00:30)
[2019-08-02] MEDS ORDERED: Insulin Regular 300 UNITS/3 ML VIAL IVP SCH (00:30)
[2019-08-02] MEDS ORDERED: Calcium Gluc 4.6 MEQ/10 ML (100 MG/ML) SLOW IVP SCH (00:30)
[2019-08-02] MEDS ORDERED: Pantoprazole 40 MG VIAL IVP SCH ×2 (00:30→09:00)
[2019-08-02 00:50] LABS: ALT (SGPT) 2310 U/L (8-55); AST (SGOT) 2965 U/L (5-34); Albumin 3.5 g/dL (3.4-4.8); Alkaline Phosphatase 142 U/L (40-110); Anion Gap 30 mmol/L (10-20); BUN (Urea Nitrogen) 36 mg/dL (8.4-25.7); Bilirubin, Total 2.1 mg/dL (0.2-1.2); Calc. Creatinine Clearance 0 mL/min (70-130); Calcium 8.3 mg/dL (7.8-10.44); Chloride 103 mmol/L (98-107); Estimated GFR-MDRD 42; Globulin 2.5 g/dL (2.4-3.5); Glucose 74 mg/dL (83-110); Potassium 6.1 mmol/L (3.5-5.1); Sodium 135 mmol/L (136-145)
[2019-08-02 00:54] LABS: Carbon Dioxide 8 mmol/L (23-31); Troponin I 0.134 ng/mL (< 0.028)
[2019-08-02] MEDS ORDERED: Fentanyl 100 MCG/2 ML VIAL ONE (00:55)
[2019-08-02] MEDS ORDERED: CEFAZOLIN 2 GM in Premix Bag 1 BAG IVPB SCH (01:00)
[2019-08-02] MEDS ORDERED: Sodium Chloride 0.9% 1,000 ML IV SCH (01:00)
[2019-08-02] MEDS ORDERED: Ketamine 50 MG/ML (10ML VIAL) ONE (01:02)
[2019-08-02 01:12] VITALS: BMI 27.1
[2019-08-02] MEDS ORDERED: Sodium Bicarb 50 MEQ/50 ML VIAL ONE ×3 (01:30→02:10)
[2019-08-02] MEDS ORDERED: Midazolam HCl 2 mg/2 ml Vial ONE (01:31)
[2019-08-02] MEDS ORDERED: Ondansetron PF 4 MG/2 ML Vial IVP PRN (01:55)
[2019-08-02] MEDS ORDERED: Mag-Al 1200 mg/1200 mg/30 ML UDCUP PO PRN (01:55)
[2019-08-02] MEDS ORDERED: Bisacodyl 5 MG TAB PO PRN (01:55)
[2019-08-02] MEDS ORDERED: Bisacodyl 10 MG SUPP PR PRN (01:55)
[2019-08-02] MEDS ORDERED: Hetastarch 6% 500 ML 500 ML IVPB PRN (01:55)
[2019-08-02] MEDS ORDERED: Fentanyl 100 MCG/2 ML VIAL SLOW IVP PRN ×2 (01:55)
[2019-08-02] MEDS ORDERED: hydrALAZINE 20 MG/ML VIAL SLOW IVP PRN (01:55)
[2019-08-02] MEDS ORDERED: Morphine 2 MG/ML SYRINGE SLOW IVP PRN (01:55)
[2019-08-02] MEDS ORDERED: Promethazine HCl 25 MG/ML VIAL IM PRN (01:55)
[2019-08-02] MEDS ORDERED: Guaifenesin DM 100-10/5 ML UDCUP PO PRN (01:55)
[2019-08-02] MEDS ORDERED: Potassium Chloride 20 MEQ/100 ML PREMIX BAG IVPB PRN (01:55)
[2019-08-02] MEDS ORDERED: Phenylephrine 10 MG/NS 250 ML 250 ML IVPB PRN (01:55)
[2019-08-02 02:08] LABS: Actual Bicarbonate (HCO3a) 10.2 mEq/L (22-28); Base Excess (BEa) -17.3 mEq/L (-2.0 to +3.0); CO2 Tension 30.6 mmHg (35.0-45.0); Calcium, Ionized 1.06 mmol/L (1.12-1.30); Carboxyhemoglobin (COHb) 1.1 gm% (0.0-3.0); Hemoglobin (Hb) 7.2 g/dL (14.0-18.0); O2 Tension (PaO2) 103.9 mmHg (> 70.0); Potassium - ABG Lab 4.88 mmol/L (3.70-5.30)
[2019-08-02 02:12] LABS: #Lymphocytes 0.9 thou/uL (1.20-3.40); #Monocytes 1.6 thou/uL (0.11-0.59); #Neutrophils 14.8 thou/uL (1.40-6.50); %Eosinophils 0.2 % (0.0-10.0); %Neutrophils 85.8 % (42.0-75.0); Mean Corpuscular HGB CONC 33.1 g/dL (32.0-36.0); Mean Corpuscular Hemoglobin 35.7 pg (27.0-31.0); Platelet Count 223 thou/uL (130-400); RBC Distribution Width 12.7 % (11.5-14.5); Red Blood Cell (RBC) Count 1.95 mill/uL (4.70-6.10); White Blood Cell (WBC) Count 17.3 thou/uL (4.8-10.8)
[2019-08-02 02:12] LABS: Puncture Site ALINE; pH, Arterial 7.14 (7.35-7.45)
[2019-08-02] MEDS: Sodium Chloride 0.9% 1,000 ML IV SCH ×3 (02:22→23:40)
[2019-08-02 02:29] LABS: Anion Gap 28 mmol/L (10-20); BUN (Urea Nitrogen) 38 mg/dL (8.4-25.7); Calc. Creatinine Clearance 39 mL/min (70-130); Calcium 7.6 mg/dL (7.8-10.44); Carbon Dioxide 10 mmol/L (23-31); Chloride 106 mmol/L (98-107); Estimated GFR-MDRD 37; Glucose 97 mg/dL (83-110); Potassium 5.1 mmol/L (3.5-5.1); Sodium 139 mmol/L (136-145)
[2019-08-02] MEDS ORDERED: Sodium Bicarb 50 MEQ/50 ML VIAL IVP SCH (02:30)
--- NOTE | 2019-08-02 02:32 | CON ---
DATE OF CONSULTATION: 08/02/2019 HISTORY OF PRESENT ILLNESS: Mr. Ying underwent single-vessel coronary artery bypass grafting on 07/24. He had postoperative atrial fibrillation and flutter, requiring ablation, subsequent amiodarone and Eliquis. He presented in [place] with hypotension and was transferred back here. He had a CT scan performed in [place], which he said he had a large pericardial effusion-I do not have these films. After coming to the emergency department here, he had systolic blood pressures in the 100s and had an echocardiogram performed, showing signs of pericardial tamponade. I was asked to see him at that point. PAST MEDICAL HISTORY: 1. Coronary artery disease, status post coronary artery bypass grafting as above. 2. Remote tobacco abuse. 3. Degenerative joint disease. PAST SURGICAL HISTORY: 1. Right knee arthroscopy. 2. Tonsillectomy. 3. Coronary artery bypass grafting with left internal mammary artery to LAD. ALLERGIES: NONE. SOCIAL HISTORY: He quit smoking. He is . HOME MEDICATIONS: 1. Coreg 1.5625 mg b.i.d. 2. Lipitor 40 mg daily. 3. Aspirin 81 mg daily. 4. Eliquis 5 mg b.i.d. 5. Amiodarone 200 mg b.i.d. PHYSICAL EXAMINATION: GENERAL: The patient is in obvious distress, panting. VITAL SIGNS: His pulse is 75 and his blood pressure is 100/60. LUNGS: Clear bilaterally. HEART: Heart tones are diminished. ABDOMEN: Soft. EXTREMITIES: There is no edema. ASSESSMENT AND PLAN: Pericardial tamponade, to the OR emergently for pericardial window. Job ID: [id number]
--- NOTE | 2019-08-02 02:36 | HP ---
CHIEF COMPLAINT: Syncope, nausea, vomiting. HISTORY OF PRESENT ILLNESS: Patient is a 78-year-old male who recently was discharged from the hospital after a bypass, who presents to the hospital with worsening nausea, vomiting, and syncope. The patient's son was at the bedside, states that the patient did well after discharge, however, on Saturday, started having severe nausea and vomiting. The patient today was in [place] visiting some family when he started having again nausea, vomiting, and to the point that he passed out. At this time, he was taken to the ER at [facility] I believe where he was transported here for further evaluation. At [facility], he did have a CTA which did not indicate any dissection, however, indicated a very large pericardial effusion and findings compatible with right-sided congestive heart failure. At this time, the patient was admitted into the hospital for further evaluation. The patient denies any chest pain or shortness of breath. He states he feels a little better, however, appears ill. PAST MEDICAL HISTORY: 1. CAD, status post bypass. 2. Atrial fibrillation. 3. Hyperlipidemia. PAST SURGICAL HISTORY: The patient has had a bypass. He has had cataract surgery and knee surgery. SOCIAL HISTORY: He is a former smoker. Denies any alcohol use, drug use. He is a full code. REVIEW OF SYSTEMS: All negative, except for the ones mentioned above in the HPI. PHYSICAL EXAMINATION: VITAL SIGNS: Temperature of 98.8, blood pressure 116/74, heart rate of 96, respirations 20. GENERAL: The patient is awake, alert, and oriented x3, however, appears very ill. CARDIOVASCULAR: S1 and S2 present. No murmurs, rubs, or gallops. LUNGS: Clear to auscultation. No rhonchi or wheezes noted. ABDOMEN: Soft. Bowel sounds are present x2. He does have pain upon palpation to his epigastric area. His midsternum incision is intact. EXTREMITIES: Cool to touch, hands and legs. Pedal pulses are palpable or weak. NEUROVASCULAR: No focal deficits noted. SKIN: He does have a substernal scar. Otherwise, no cuts, lesions, or bruises noted. LABORATORY RESULTS: WBCs of 13.8, hemoglobin of 9.4, hematocrit of 29.9. His platelets were 159. Chemistry; his lactic acid was 13. Sodium 133, potassium of 6.3, BUN of 36, creatinine of 1.55. His AST was 1538, ALT was 1457, alkaline phosphatase is 143, bilirubin is 1.7. He did have a chest x-ray which indicated substernal sternotomy wires. ASSESSMENT AND PLAN: The patient is a 78-year-old male who presents to the hospital with syncope. 1. Pericardial effusion, large. The patient is status post ablation for his atrial fibrillation, was on Eliquis. His last Eliquis dose was on Saturday per family. The patient currently appears ill. Waiting for official echocardiogram to be read. CV Surgery has already been notified. We are awaiting on echo. Patient's lactic acid is also severely elevated, so is his LFTs, could be some right heart failure. We will start patient on some gentle hydration. We will keep patient n.p.o. for possible surgery. We will type and screen the patient. Echo was done and at this time, there was some delay in getting the echo, however, echo indicated some significant right-sided tamponade features. CV Surgery was called. The patient was taken to the OR. 2. Lactic acidosis, most likely secondary to his underlying process. We will start patient on some prophylactic antibiotics and continue hydration. 3. Shock liver. The patient's LFTs were significantly elevated, which indicates possible right heart failure. We will continue to monitor. 4. Status post bypass. We will continue to monitor. 5. Atrial fibrillation, currently in sinus rhythm. His EKG indicated low voltage. We will continue to monitor. He is at high risk for tamponade. Job ID: [id number]
[2019-08-02] MEDS: Insulin Regular 300 UNITS/3 ML VIAL SC PRN ×3 (04:28→12:04)
[2019-08-02 05:02] LABS: Actual Bicarbonate (HCO3a) 13.4 mEq/L (22-28); Base Excess (BEa) -10.8 mEq/L (-2.0 to +3.0); Calcium, Ionized 1.05 mmol/L (1.12-1.30); Carboxyhemoglobin (COHb) 0.7 gm% (0.0-3.0); Hemoglobin (Hb) 8.5 g/dL (14.0-18.0); O2 Tension (PaO2) 111.8 mmHg (> 70.0); Potassium - ABG Lab 4.64 mmol/L (3.70-5.30); pH, Arterial 7.36 (7.35-7.45)
[2019-08-02 05:05] LABS: CO2 Tension 24.2 mmHg (35.0-45.0); Puncture Site ALINE
[2019-08-02] MEDS: CEFAZOLIN 2 GM in Premix Bag 1 BAG IVPB SCH ×3 (05:06→20:25)
[2019-08-02 07:40] LABS: Hemoglobin 8.3 g/dL (14.0-18.0)
[2019-08-02] MEDS: Famotidine/PF 20 mg/2ml Vial SLOW IVP SCH (07:45)
[2019-08-02 07:52] LABS: Potassium 4.6 mmol/L (3.5-5.1)
[2019-08-02 08:48] LABS: Actual Bicarbonate (HCO3a) 17.7 mEq/L (22-28); Base Excess (BEa) -5.1 mEq/L (-2.0 to +3.0); Calcium, Ionized 1.07 mmol/L (1.12-1.30); Carboxyhemoglobin (COHb) 0.9 gm% (0.0-3.0); Hemoglobin (Hb) 8.5 g/dL (14.0-18.0); Potassium - ABG Lab 4.38 mmol/L (3.70-5.30); pH, Arterial 7.47 (7.35-7.45)
[2019-08-02 08:50] LABS: CO2 Tension 25.2 mmHg (35.0-45.0); Puncture Site LINE
[2019-08-02] MEDS ORDERED: FLU VACC TS2019-20(65YR UP)/PF 180 MCG/0.5 ML SYRINGE IM ONE (09:00)
[2019-08-02] MEDS ORDERED: Prevnar 13-Val Conj/PF 0.5 ML SYRINGE IM ONE (09:00)
--- NOTE | 2019-08-02 09:57 | RAD ---
PORTABLE CHEST: HISTORY: Postop open heart surgery. COMPARISON: Prior day's study. FINDINGS: Postop sternotomy changes are noted. The heart size is enlarged. Endotracheal tube is in satisfactory position. NG tube is seen with the tip just barely within the stomach and should be advanced for bet ter placement. There is increased density in the retrocardiac region, which would suggest left lower lobe atelectasis. IMPRESSION: 1. Nasogastric tube with the tip of the tube just slightly below the gastroesophageal junction and sh ould be advanced slightly. 2. Increased density in the left lung base, suggesting left lower lobe atelectasis. 3. Calcification which appears to be along the left hemidiaphragm, raising the possibility of prior a sbestosis exposure. POS: MELISSA
[2019-08-02] MEDS ORDERED: Rocuronium Bromide 10 MG/ML (10ML VIAL) ONE (11:56)
[2019-08-02] MEDS ORDERED: Succinylcholine Chloride 20 MG/ML 10 ml SYRINGE FS ONE (11:56)
[2019-08-02] MEDS: Aspirin Chewable 81 MG TAB PO SCH (12:03)
[2019-08-02] MEDS: Acetaminophen 325 MG TAB PO PRN (16:48)
[2019-08-02] MEDS ORDERED: Amiodarone 450 MG, Admixture Fee 1 EACH in Dextrose 5% in Water 250 ML IVPB SCH (21:30)
[2019-08-02] MEDS ORDERED: Cepastat Lozenges 1 LOZ PO PRN (21:59)
--- NOTE | 2019-08-02 22:33 | PDOC.HOSPP ---
- Subjective Encounter Date: 08/02/19 Encounter Time: 17:00 Subjective: Patient seen and examined for Pericardial tamponade. Sitting on chair. No CP. SOB improving. No new complaints. - Objective Vital Signs & Weight: Vital Signs (12 hours) Temp Pulse Ox 08/02/19 20:00 98 F 08/02/19 19:05 94 L 08/02/19 15:00 98.3 F 08/02/19 11:00 98.1 F Weight Weight 176 lb 12.972 oz Most Recent Monitor Data Heart Rate from ECG 91 NIBP 80/50 NIBP BP-Mean 60 Respiration from ECG 22 SpO2 93 I&O: 08/01/19 08/02/19 08/03/19 06:59 06:59 06:59 Intake Total 1762 1920 Output Total 610 980 Balance 1152 940 Result Diagrams: 08/02/19 06:51 08/02/19 06:51 Additional Labs: Accuchecks 08/02/19 08/02/19 08/02/19 20:34 16:53 11:24 POC Glucose 92 93 139 H 08/02/19 08/02/19 08/02/19 08:44 04:29 02:02 POC Glucose 137 H 140 H 118 H 08/02/19 01:22 POC Glucose 121 H Radiology Reviewed by me: Yes (Echo - Pericardial eff) EKG Reviewed by me: Yes (Tele SR) Hospitalist ROS - Review of Systems Cardiovascular: denies: chest pain, palpitations, orthopnea, paroxysmal noc. dyspnea, edema, light headedness, other Gastrointestinal: denies: nausea, vomiting, abdominal pain, diarrhea, constipation, melena, hematochezia, other - Medication Medications: Active Medications Generic Name Dose Route Start Last Admin Trade Name Freq PRN Reason Stop Dose Admin Acetaminophen 650 mg 08/02/19 01:55 08/02/19 16:48 Tylenol PO 650 mg Q6H PRN Administration Headache/Fever Or Mild Pain Aspirin 81 mg 08/02/19 09:00 08/02/19 12:03 Aspirin Chewable PO 81 mg DAILY DARIO Administration Famotidine 20 mg 08/02/19 09:00 08/02/19 07:45 Pepcid SLOW IVP 20 mg DAILY DARIO Administration Fentanyl 50 mcg 08/02/19 01:55 08/02/19 02:44 Sublimaze SLOW IVP 08/04/19 01:39 50 mcg Q2H PRN Administration Severe Pain (7-10) Sodium Chloride 1,000 mls @ 100 mls/hr 08/02/19 01:55 08/02/19 12:04 Normal Saline 0.9% IV 1,000 mls .Q10H DARIO Administration Amiodarone HCl 450 mg/ 259 mls @ 0 mls/hr 08/02/19 21:30 08/02/19 21:31 Miscellaneous Medication 1 IVPB 259 mls each/ Dextrose/Water INF DARIO Administration Protocol As Directed Insulin Human Regular 0 units 08/02/19 02:05 08/02/19 12:04 Humulin R SC 2 unit Q4H PRN Administration POST OP SLIDING SCALE Protocol Ondansetron HCl 4 mg 08/02/19 01:55 08/02/19 05:34 Zofran IVP 4 mg Q6H PRN Administration Nausea/Vomiting Sodium Chloride 10 ml 08/02/19 09:00 08/02/19 20:25 Flush - Normal Saline IVF 10 ml Q12HR DARIO Administration Throat Lozenges 1 jovanna 08/02/19 21:59 08/02/19 22:10 Cepastat Lozenges PO 1 jovanna Q2H PRN Administration Sore Throat - Exam General Appearance: NAD Heart: RRR, no gallops, no rubs, normal peripheral pulses Respiratory: no wheezes, normal chest expansion, rales, rhonchi Respiratory - other findings: chest tubes + Gastrointestinal: soft, non-tender, non-distended, normal bowel sounds Extremities: no cyanosis, no clubbing Psychiatric: normal affect, A&O x 3 Hosp A/P - Plan DVT proph w/SCDs Pericardial tamponade s/p Pericardial window 08/02 Metabolic acidosis/Lactic acidosis Abn LFTs RAMYA CAD s/p recent CABG HTN Afib Hyperkalemia PLAN: s/p Pericardial window Cont CCU monitoring Cont current IVF On Amiodarone drip AM labs including LFTs Cardio eval CT input appreciated
[2019-08-02] MEDS ORDERED: Polyethylene Glycol 3350 17 GM Packet PO PRN (22:37)
[2019-08-03 04:06] LABS: Lactic Acid 2.4 mmol/L (0.5-2.2)
[2019-08-03 04:07] LABS: Band 9 % (5-11); Eosinophils 1 % (0-10); Hemoglobin 7.5 g/dL (14.0-18.0); Hypochromia SLIGHT = 6-15 cells (100X) (0-5/hpf); Lymphocytes 5 % (21-51); MDiff Complete? YES; Mean Corpuscular HGB CONC 34.6 g/dL (32.0-36.0); Mean Corpuscular Hemoglobin 35.6 pg (27.0-31.0); Mean Platelet Volume 8.1 fL (7.4-10.4); Monocytes 3 % (0-10); Neutrophil 82 % (42-75); Nucleated RBC 4 % (0); Platelet Count 209 thou/uL (130-400); Platelet Morphology Comment Appears Adequate; RBC Distribution Width 13.5 % (11.5-14.5); Red Blood Cell (RBC) Count 2.11 mill/uL (4.70-6.10); White Blood Cell (WBC) Count 9.7 thou/uL (4.8-10.8)
[2019-08-03 04:13] LABS: Anion Gap 9 mmol/L (10-20); BUN (Urea Nitrogen) 29 mg/dL (8.4-25.7); Calc. Creatinine Clearance 90 mL/min (70-130); Calcium 6.9 mg/dL (7.8-10.44); Carbon Dioxide 24 mmol/L (23-31); Chloride 107 mmol/L (98-107); Estimated GFR-MDRD Greater than 90; Glucose 72 mg/dL (83-110); Potassium 4.1 mmol/L (3.5-5.1); Sodium 136 mmol/L (136-145)
[2019-08-03 04:14] LABS: ALT (SGPT) 2707 U/L (8-55); AST (SGOT) 3254 U/L (5-34); Albumin 2.2 g/dL (3.4-4.8); Alkaline Phosphatase 116 U/L (40-110); Bilirubin, Direct 0.9 mg/dL (0.1-0.3); Bilirubin, Total 1.5 mg/dL (0.2-1.2); Protein, Total 3.8 g/dL (5.8-8.1)
[2019-08-03] MEDS: Acetaminophen 325 MG TAB PO PRN (06:13)
--- NOTE | 2019-08-03 08:42 | RAD ---
CHEST 1 VIEW: HISTORY: Followup postop open heart. FINDINGS: NG tube and endotracheal tubes have been removed. Recent postop midline sternotomy. Increased uziel ngs in the right infrahilar region and also abnormal increased density in the left infrahilar region and left lower lobe retrocardiac region raiding concern for some atelectasis and/or pneumonia. IMPRESSION: Bibasilar opacities including the left retrocardiac region. Continue short-term followup. No new pr ocess. POS: OFF
--- NOTE | 2019-08-03 08:48 | PRG ---
DATE OF SERVICE: 08/03/2019 SUBJECTIVE: This morning, he is awake, alert, and responsive. He is doing better. He is less short of breath. No pain. X-ray looks good. OBJECTIVE: VITAL SIGNS: Stable. Blood pressure 91/56, pulse 88, respiratory rate 18, saturations 96% on room air. CHEST: No wheezing or crackles. CARDIAC: Normal S1 and S2. No gallops. ABDOMEN: No masses. LABORATORY DATA: Lytes are normal. H and H are low at 7 and 25, white count 9000. ASSESSMENT: 1. Status post emergency pericardial window for tamponade. 2. Abnormal liver function profile. 3. Recent coronary artery bypass grafting. Pulmonary will follow while in the ICU. Continue supportive care. Neb treatment as needed. He is a former smoker. Job ID: [id number]
--- NOTE | 2019-08-03 08:50 | CON ---
DATE OF CONSULTATION: Zoey Ying is a 78-year-old gentleman, who underwent emergency pericardial window last night. He is on the vent, intubated, awake, alert, responsive this morning. He was just recently discharged from the hospital on 07/30/19 after he underwent a coronary artery bypass graft surgery. Status post atrial fibrillation, underwent ablation. He was discharged home on Eliquis 5 mg twice a day, amiodarone 200 twice a day, Coreg 3.125 half tablet twice a day, atorvastatin 40, and aspirin 81. He said he is having difficulty breathing and presented to the ER and subsequently transferred here. PAST MEDICAL HISTORY: Otherwise well outlined in his previous records. Coronary artery disease, hypertension, high cholesterol, diabetes. PREVIOUS SURGERIES: Tonsils, arthroscopic surgery. MEDICATIONS: As above. SOCIAL HISTORY: Tobacco previous. Alcohol minimal. PHYSICAL EXAMINATION: GENERAL: Awake, alert, and responsive. VITAL SIGNS: Sats are 98%, respirations 20, afebrile, blood pressure 126/77. CHEST: Decreased breath sounds. No wheezing. CARDIAC: Normal S1, S2. ABDOMEN: Negative mass. LABORATORY DATA: PO2 78, pCO2 25, pH 7.47 at a rate of 14 and 30%. X-ray shows some cardiomegaly. He has nonspecific infiltrates. H and H were low at 25. His chemistry shows creatinine 1.8, BUN 38, glucose 137. IMPRESSION: Status post pericardial window emergency cardiac tamponade, recent coronary artery bypass graft, diabetes, renal failure, carotid disease. PLAN: 1. Wean and extubate. Continue supportive care, PT. 2. We will follow in the ICU. TIME TAKEN: 70 minutes, 50% direct patient care. Job ID: [id number]
[2019-08-03] MEDS: Senokot S 8.6-50 MG TAB PO SCH ×2 (09:28→21:26)
[2019-08-03] MEDS: Famotidine/PF 20 mg/2ml Vial SLOW IVP SCH ×3 (09:28→21:27)
[2019-08-03] MEDS: Aspirin Chewable 81 MG TAB PO SCH (09:28)
[2019-08-03] MEDS: Polyethylene Glycol 3350 17 GM Packet PO SCH (09:41)
--- NOTE | 2019-08-03 11:32 | OP ---
DATE OF PROCEDURE: 08/02/2019 PREOPERATIVE DIAGNOSIS: Pericardial tamponade. POSTOPERATIVE DIAGNOSIS: Pericardial tamponade. PROCEDURE PERFORMED: Pericardial window. DRAINS: A 24-Icelandic drain. FINDINGS: 900 mL of bloody pericardial fluid. DESCRIPTION OF PROCEDURE: The patient was brought to the operating room and placed in supine position on the operating table. The left groin was prepped and draped in usual sterile fashion. Using 1% lidocaine, the groin was anesthetized and a 5-Icelandic arterial line placed. The chest was then prepped and draped in usual sterile fashion. After draping, the patient was placed under general anesthesia. Skin incision was made below the xiphoid and dissection under the xiphoid was obtained with electrocautery. The pericardium was entered and 900 mL of blood was evacuated from his pericardium. A 24-Icelandic drain was placed in the pericardium. The wounds were then closed in layers and Dermabond applied to the skin. The patient was taken back to the intensive care unit, intubated. Needle, sponge, and instrument counts were all reported as correct at the end of the procedure. Job ID: [id number]
--- NOTE | 2019-08-03 12:14 | CON ---
DATE OF CONSULTATION: HISTORY: Zoey Ying is a 78-year-old male, patient of Dr. Corbett. He was evaluated in June 2019 for exertional chest discomfort that had been occurring for several weeks. He describes this as a pressure type discomfort that would occur with exertion, lasting 5 minutes. This would radiate to his neck and he becomes somewhat diaphoretic. This started to occur with less exertion. Evaluation by Dr. Corbett included an echocardiogram, which revealed ejection fraction of 55% with evidence of diastolic dysfunction, the anteroapical wall was hypokinetic. Carotid Dopplers only showed minimal amount of plaque. There was no significant stenosis. He underwent cardiac PET scan, which revealed moderate-sized area of ischemia involving the anterior apical wall with no evidence of scar. He underwent cardiac catheterization at [facility] in [place] on July 22, 2019. He had subtotal LAD ostial calcified stenosis and normal left ventricular function. He was then transferred to [facility], and on July 24, 2019, he underwent CABG x1 with MENDES to the LAD by Dr. Townsend. His postoperative course was remarkable for paroxysmal atrial fibrillation and flutter. He was treated with IV amiodarone and then underwent flutter ablation on July 28, 2019. He was discharged on amiodarone 200 b.i.d. and Eliquis 5 b.i.d. on July 30. On August 02, he had several episodes of vomiting as well as increased shortness of breath. He was taken to the hospital in [place] with hypotension and then transferred back to [facility]. CT scan of the chest showed large pericardial effusion. Systolics were in the 100s. On arrival here, he underwent echocardiogram, which revealed moderate concentric left ventricular hypertrophy with ejection fraction of 55% to 60%. There was large pericardial effusion with the right ventricle and right atrial collapse. He then underwent emergent placement of pericardial window with drainage of 900 mL of blood. At present time, he is in the chair without any specific complaints. PAST MEDICAL HISTORY: Hypertension, hypercholesterolemia, possible diabetes. OPERATIONS: Tonsillectomy, knee arthroscopy of the right knee, and CABG x1. MEDICATIONS: At time of discharge included; 1. Eliquis 5 b.i.d. 2. Amiodarone 200 mg b.i.d. 3. Carvedilol 3.125 one-half tablet b.i.d. 4. Atorvastatin 40 daily. 5. Aspirin 81 daily. ALLERGIES: NONE. SOCIAL HISTORY: He smoked in the past. REVIEW OF SYSTEMS: A 10-point review of systems unremarkable. PHYSICAL EXAMINATION: VITAL SIGNS: Blood pressure 91/56, pulse of 88. HEENT: PERRL. NECK: Supple. CHEST: Clear. CARDIAC: S1 and S2 are normal without any S3, S4, murmurs, or rubs. ABDOMEN: Normal bowel sounds. EXTREMITIES: Revealed trace pretibial edema. NEUROLOGIC: Grossly intact. LABORATORY DATA: EKG on admission revealed sinus tachycardia with low-voltage QRS. On the monitor at present, he is in atrial fibrillation and at times will go back in the sinus rhythm for 30 to 45 seconds and then back to atrial fibrillation. Hemoglobin as low as 7.0, white count 17,300, platelets 223,000. INR 2.3. PH 7.47, pCO2 of 25.2, PO2 of 78.0. Sodium 136, potassium 4.1, chloride 107, carbon dioxide 24, BUN 29, creatinine 0.79. AST 3254, ALT 2707, alkaline phosphatase 116. It is of note that his creatinine was 1.81 around the time of discharge, but currently is down to 0.79. IMPRESSION: 1. Cardiac tamponade with 900 mL of blood in the pericardium, status post pericardial window. 2. Status post coronary artery bypass grafting x1 with MENDES to LAD. 3. Status post atrial flutter ablation after bypass. 4. Paroxysmal atrial fibrillation with continued episodes. Currently, he is on IV amiodarone. 5. Acute kidney injury, which appears to have resolved. 6. Elevated LFTs, probably secondary to hepatic congestion. 7. Hypertension. 8. Hypercholesterolemia. 9. Former smoker. 10. Questionable diabetes. RECOMMENDATIONS: With the elevated liver function tests, atorvastatin will be held at present time. He will be continued on IV amiodarone. Certainly, anticoagulants will need to be avoided at this time. Job ID: [id number] MTDD
[2019-08-03] MEDS ORDERED: Famotidine/PF 20 mg/2ml Vial SLOW IVP SCH (21:00)
[2019-08-04 06:03] LABS: ALT (SGPT) 1533 U/L (8-55); AST (SGOT) 852 U/L (5-34); Albumin 2.3 g/dL (3.4-4.8); Alkaline Phosphatase 153 U/L (40-110); Anion Gap 9 mmol/L (10-20); BUN (Urea Nitrogen) 20 mg/dL (8.4-25.7); Bilirubin, Total 1.8 mg/dL (0.2-1.2); Calc. Creatinine Clearance 105 mL/min (70-130); Calcium 6.9 mg/dL (7.8-10.44); Carbon Dioxide 22 mmol/L (23-31); Chloride 107 mmol/L (98-107); Estimated GFR-MDRD Greater than 90; Glucose 86 mg/dL (83-110); Potassium 4.1 mmol/L (3.5-5.1); Sodium 134 mmol/L (136-145)
[2019-08-04 06:25] LABS: Hemoglobin 8.8 g/dL (14.0-18.0); Mean Corpuscular HGB CONC 33.2 g/dL (32.0-36.0); Mean Corpuscular Hemoglobin 33.5 pg (27.0-31.0); Mean Platelet Volume 8.3 fL (7.4-10.4); Platelet Count 245 thou/uL (130-400); Red Blood Cell (RBC) Count 2.61 mill/uL (4.70-6.10); White Blood Cell (WBC) Count 9.4 thou/uL (4.8-10.8)
[2019-08-04 06:41] LABS: Eosinophils 2 % (0-10); Lymphocytes 9 % (21-51); MDiff Complete? YES; Metamyelocyte 1 % (0-0); Monocytes 5 % (0-10); Neutrophil 83 % (42-75); Nucleated RBC 5 % (0); Platelet Morphology Comment Appears Adequate
--- NOTE | 2019-08-04 07:03 | PDOC.HOSPP ---
- Subjective Encounter Date: 08/03/19 Encounter Time: 13:00 Subjective: Patient seen and examined for Pericardial tamponade. No SOB. Some discomfort at the surgical site. No new complaints. No overnight events - Objective Vital Signs & Weight: Vital Signs (12 hours) Temp Pulse Ox 08/04/19 04:00 98.5 F 08/04/19 00:00 98.1 F 08/03/19 20:00 94 L 08/03/19 19:42 98.2 F Weight Weight 183 lb 13.848 oz Most Recent Monitor Data Heart Rate from ECG 91 NIBP 136/76 NIBP BP-Mean 96 Respiration from ECG 20 SpO2 96 I&O: 08/03/19 08/04/19 08/05/19 06:59 06:59 06:59 Intake Total 4239.5 520 Output Total 1350 1461 Balance 2889.5 -941 Result Diagrams: 08/04/19 03:55 08/04/19 03:55 Additional Labs: Laboratory Tests 08/03/19 03:08 Total Bilirubin 1.5 H AST 3254 H ALT 2707 H Radiology Reviewed by me: Yes (CXR - neg) EKG Reviewed by me: Yes (Tele SR) Hospitalist ROS - Review of Systems Respiratory: denies: cough, dry, shortness of breath, hemoptysis, SOB with excertion, pleuritic pain, sputum, wheezing, other Gastrointestinal: denies: nausea, vomiting, abdominal pain, diarrhea, constipation, melena, hematochezia, other - Medication Medications: Active Medications Generic Name Dose Route Start Last Admin Trade Name Freq PRN Reason Stop Dose Admin Acetaminophen 650 mg 08/02/19 01:55 08/03/19 06:13 Tylenol PO 650 mg Q6H PRN Administration Headache/Fever Or Mild Pain Aspirin 81 mg 08/02/19 09:00 08/03/19 09:28 Aspirin Chewable PO 81 mg DAILY DARIO Administration Famotidine 20 mg 08/03/19 09:00 08/03/19 21:27 Pepcid SLOW IVP 20 mg BID DARIO Administration Amiodarone HCl 450 mg/ 259 mls @ 0 mls/hr 08/02/19 21:30 08/02/19 21:31 Miscellaneous Medication 1 IVPB 259 mls each/ Dextrose/Water INF DARIO Administration Protocol As Directed Insulin Human Regular 0 units 08/02/19 02:05 08/02/19 12:04 Humulin R SC 2 unit Q4H PRN Administration POST OP SLIDING SCALE Protocol Ondansetron HCl 4 mg 08/02/19 01:55 08/02/19 05:34 Zofran IVP 4 mg Q6H PRN Administration Nausea/Vomiting Polyethylene Glycol 17 gm 08/03/19 09:00 08/03/19 09:41 Miralax PO 17 gm DAILY DARIO Administration Senna/Docusate Sodium 1 tab 08/03/19 09:00 08/03/19 21:26 Senokot S PO 1 tab BID DARIO Administration Sodium Chloride 10 ml 08/02/19 09:00 08/03/19 21:27 Flush - Normal Saline IVF 10 ml Q12HR DARIO Administration Throat Lozenges 1 jovanna 08/02/19 21:59 08/02/19 22:10 Cepastat Lozenges PO 1 jovanna Q2H PRN Administration Sore Throat - Exam General Appearance: NAD Neck: no JVD Heart: RRR, no gallops, no rubs, normal peripheral pulses Respiratory: no wheezes, no rales, normal chest expansion, rhonchi Gastrointestinal: soft, non-distended, normal bowel sounds, no guarding, no rigidity Psychiatric: normal affect, A&O x 3 Hosp A/P - Plan DVT proph w/SCDs Pericardial tamponade s/p Pericardial window 08/02 Metabolic acidosis/Lactic acidosis Abn LFTs prob due to passive hepatic congestion RAMYA - improving CAD s/p recent CABG A flutter post CABG s/p recent ablation HTN Afib Hyperkalemia - resolved PLAN: s/p Pericardial window Cont CCU monitoring Cont current IVF Off Amiodarone drip due to hypotension AM labs including LFTs Statins on hold due to Abn LFTs
[2019-08-04] MEDS: Acetaminophen 325 MG TAB PO PRN ×2 (07:49→22:18)
[2019-08-04] MEDS: Aspirin Chewable 81 MG TAB PO SCH (08:52)
[2019-08-04] MEDS: Senokot S 8.6-50 MG TAB PO SCH (08:53)
[2019-08-04] MEDS: Polyethylene Glycol 3350 17 GM Packet PO SCH (08:53)
[2019-08-04] MEDS: Famotidine 20 MG TAB PO SCH ×2 (08:55→19:48)
[2019-08-04] MEDS ORDERED: Amiodarone 200 MG TAB PO SCH (09:15)
[2019-08-04] MEDS: Carvedilol 3.125 MG TAB PO SCH (16:43)
[2019-08-04] MEDS: Amiodarone 200 MG TAB PO SCH (19:47)
[2019-08-04] MEDS ORDERED: traMADol HCl 50 MG TAB PO PRN (22:46)
--- NOTE | 2019-08-04 22:46 | PDOC.HOSPP ---
- Subjective Encounter Date: 08/04/19 Encounter Time: 12:30 Subjective: Patient seen and examined for Pericardial tamponade. No CP or SOB. No new complaints. No overnight events - Objective Vital Signs & Weight: Vital Signs (12 hours) Temp Pulse Resp BP Pulse Ox 08/04/19 19:41 97.1 F L 85 21 H 127/63 98 08/04/19 16:00 98.1 F 08/04/19 12:00 98.1 F Weight Weight 183 lb 13.848 oz Most Recent Monitor Data Heart Rate from ECG 78 NIBP 127/81 NIBP BP-Mean 96 Respiration from ECG 21 SpO2 92 I&O: 08/03/19 08/04/19 08/05/19 06:59 06:59 06:59 Intake Total 4239.5 520 600 Output Total 1350 1461 722 Balance 2889.5 -941 -122 Result Diagrams: 08/04/19 03:55 08/04/19 03:55 EKG Reviewed by me: Yes (Tele SR) Hospitalist ROS - Review of Systems Respiratory: denies: cough, dry, shortness of breath, hemoptysis, SOB with excertion, pleuritic pain, sputum, wheezing, other Gastrointestinal: denies: nausea, vomiting, abdominal pain, diarrhea, constipation, melena, hematochezia, other - Medication Medications: Active Medications Generic Name Dose Route Start Last Admin Trade Name Freq PRN Reason Stop Dose Admin Acetaminophen 650 mg 08/02/19 01:55 08/04/19 22:18 Tylenol PO 650 mg Q6H PRN Administration Headache/Fever Or Mild Pain Amiodarone HCl 400 mg 08/04/19 21:00 08/04/19 19:47 Cordarone PO 400 mg BID DARIO Administration Aspirin 81 mg 08/02/19 09:00 08/04/19 08:52 Aspirin Chewable PO 81 mg DAILY DARIO Administration Carvedilol 1.5625 mg 08/04/19 17:00 08/04/19 16:43 Coreg PO 1.5625 mg BID-WM DARIO Administration Famotidine 20 mg 08/04/19 09:00 08/04/19 19:48 Pepcid PO 20 mg BID DARIO Administration Ondansetron HCl 4 mg 08/02/19 01:55 08/02/19 05:34 Zofran IVP 4 mg Q6H PRN Administration Nausea/Vomiting Polyethylene Glycol 17 gm 08/03/19 09:00 08/04/19 08:53 Miralax PO 17 gm DAILY DARIO Administration Sodium Chloride 10 ml 08/02/19 09:00 08/04/19 19:48 Flush - Normal Saline IVF 10 ml Q12HR DARIO Administration Throat Lozenges 1 jovanna 08/02/19 21:59 08/02/19 22:10 Cepastat Lozenges PO 1 jovanna Q2H PRN Administration Sore Throat - Exam General Appearance: NAD Neck: supple, no JVD Heart: no murmur, no gallops Respiratory: no wheezes, no rales, no ronchi Gastrointestinal: non-tender, non-distended, normal bowel sounds Extremities: no cyanosis Hosp A/P - Plan DVT proph w/SCDs Pericardial tamponade s/p Pericardial window 08/02 Metabolic acidosis/Lactic acidosis Abn LFTs prob due to passive hepatic congestion RAMYA - improving CAD s/p recent CABG A flutter post CABG s/p recent ablation HTN Afib Hyperkalemia - resolved PLAN: s/p Pericardial window Cont current IVF Statins on hold due to Abn LFTs Cont Amiodarone Cont low dose Coreg/ASA Anticoag on hold due to Pericardial effusion
[2019-08-05 07:43] VITALS: BP 147/76; TEMP 98.1
--- NOTE | 2019-08-05 08:16 | DIS ---
DATE OF ADMISSION: 08/01/2019 DATE OF DISCHARGE: 08/05/2019 This is a 78-year-old gentleman, who underwent a single-vessel bypass graft about 3 weeks ago. He had postop atrial flutter and underwent ablation. He was discharged home on amiodarone and Eliquis. He returned to a hospital in [place] with pericardial tamponade several days after discharge and then was transferred here, where he underwent pericardial window. Postoperatively, he had occasional episode of atrial flutter with controlled rate, but remained in sinus rhythm for the most part. He is to be discharged today to resume his home medicines except no further Eliquis treatment. He will also receive a prescription for Lasix 20 mg a day for 5 days. Discharge and followup instructions have been given. Job ID: [id number]
[2019-08-05] MEDS: Carvedilol 3.125 MG TAB PO SCH (08:43)
[2019-08-05] MEDS: Aspirin Chewable 81 MG TAB PO SCH (08:43)
[2019-08-05] MEDS: Amiodarone 200 MG TAB PO SCH (08:44)
[2019-08-05] MEDS: Famotidine 20 MG TAB PO SCH (08:44)
[2019-08-05] MEDS: Polyethylene Glycol 3350 17 GM Packet PO SCH (08:44)
--- NOTE | 2019-08-06 19:30 | DIS ---
DATE OF ADMISSION: 08/01/2019 DATE OF DISCHARGE: 08/05/2019 DISCHARGE DISPOSITION: Home. FOLLOWUP: 1. Follow up with primary care physician, Dr. Matthew Carpio in 1 week next. 2. Follow up with Electrophysiology, Dr. Recinos; Cardiology Dr. Warren Wilson; Cardiovascular, Dr. Townsend and outpatient cardiac rehab as scheduled. ALLERGIES: NO KNOWN DRUG ALLERGIES. DISCHARGE MEDICATIONS: 1. Aspirin 81 mg daily. 2. Carvedilol 1.5625 mg b.i.d. 3. Lasix 20 mg daily for next 5 days. 4. Amiodarone 200 mg b.i.d. 5. Tramadol as needed. 6. Lipitor 40 mg daily. The patient was seen and examined on the day of discharge. Denies any new complaints. No chest pain, shortness of breath, or palpitations reported. BRIEF HOSPITAL COURSE: The patient is a 78-year-old male with recent coronary artery bypass grafting as well as ablation for atrial flutter, post CABG, presented to the emergency room with nausea, vomiting, along with syncope. He initially presented to a different facility and was transferred here for hospital admission. His workup was consistent with pericardial tamponade. Echocardiogram in the emergency room showed ejection fraction 55% to 60% with moderate concentric left ventricular hypertrophy with large pericardial effusion. The right atrium and right ventricle appear collapsed, suggesting tamponade. He underwent emergent pericardial window by Dr. Chriss Caballero. Postoperatively, he was monitored in the intensive care unit. There was 900 mL of bloody pericardial fluid. Anticoagulation has been discontinued. He was evaluated by Cardiology, Dr. Warren Wilson as well. He was placed on amiodarone drip that was later discontinued due to hypotension. He has been cleared by consultants for discharge. FINAL DIAGNOSES: 1. Hyponatremia. 2. Anemia secondary to blood loss from pericardial effusion requiring 1 unit of PRBC. 3. Syncope secondary to pericardial tamponade status post pericardial window. 4. Severe metabolic acidosis/lactic acidosis. His bicarb on admission was 8 with lactic acid of 13. 5. Abnormal LFTs with maximum ALT of 3254 and ALT of 2707, most likely secondary to passive hepatic congestion. Improving. 6. Acute kidney injury, improving. 7. Coronary artery disease, status post recent coronary artery bypass grafting. 8. Atrial flutter, status post coronary artery bypass grafting with recent ablation. 9. Occasional atrial flutter post pericardial window, in sinus rhythm at this time. 10. Hypertension. 11. History of atrial fibrillation, not a candidate for anticoagulation at this time. 12. Hyperkalemia, probably due to metabolic acidosis, resolved. 13. Repeat comprehensive metabolic profile after 1 week is recommended. Primary care physician advised to follow. Total time coordinating the discharge of this patient was 32 minutes. The patient was advised to return to emergency room if he develops any new symptoms. Job ID: [id number]
== END 2019-08-05 10:52 | disposition home or self-care (01) | DRG 270 ==
LOC: ERS 20:23 → CCU 22:43 → UNDOADMIN 08-02 00:11 → CCU 08-02 00:11 → 2NO 08-04 17:25
PROVIDERS: ADMIT Internal Medicine; ATTEND Internal Medicine
PROC: 0W9D00Z Drainage of Pericardial Cavity with Drainage Device, Open Approach (ICD-10-PCS; principal; 2019-08-02)
DX: I31.4 Cardiac tamponade (principal); K72.00 Acute and subacute hepatic failure without coma; E87.2 Acidosis; N17.9 Acute kidney failure, unspecified; I48.92 Unspecified atrial flutter; E87.1 Hypo-osmolality and hyponatremia; I31.3 Pericardial effusion (noninflammatory); I25.10 Atherosclerotic heart disease of native coronary artery without angina pectoris; E78.5 Hyperlipidemia, unspecified; M19.90 Unspecified osteoarthritis, unspecified site; I10 Essential (primary) hypertension; E87.5 Hyperkalemia; E78.00 Pure hypercholesterolemia, unspecified; I48.0 Paroxysmal atrial fibrillation; K76.1 Chronic passive congestion of liver; Z98.890 Other specified postprocedural states; Z95.1 Presence of aortocoronary bypass graft; Z98.49 Cataract extraction status, unspecified eye; Z87.891 Personal history of nicotine dependence; D50.0 Iron deficiency anemia secondary to blood loss (chronic)
CPT/HCPCS: 36415; 36416; 36430; 71045; 80048; 80053; 80076; 82550; 82553; 82805; 83605; 83735; 83880; 84484; 85025; 85610; 85730; 86850; 86900; 86901; 93005; 93010; 93306; 93798; 94002; J0282; J0690; J1815; J2250; J2405; J3010; J7070; P9016; S0028

== ENCOUNTER 2019-08-13 10:19 | Outpatient (CLI) | payer MEDICARE ==
--- NOTE | 2019-08-13 10:36 | RAD ---
EXAM: Chest 2 views: HISTORY: Pericardial effusion COMPARISON: 08/03/2019 FINDINGS: Multifocal areas of pleural calcification on the left side with blunting of the left costophrenic ang le. Postop midline sternotomy. Heart size:Within normal limits. Lungs:Clear of acute process. Atherosclerotic changes of the aorta. No confluent pneumonia, overt edema, pleural effusion, pneumothorax, or other significant acute proce ss. IMPRESSION: No plain x-ray findings to suggest significant pericardial effusion. Atherosclerosis of the aorta. No acute intrathoracic disease.
== END 2019-08-13 10:20 | disposition home or self-care (01) ==
LOC: RAD 10:19
PROVIDERS: ATTEND Thoracic Surgery (Cardiothoracic Vascular Surgery)
DX: I31.3 Pericardial effusion (noninflammatory) (principal); I70.0 Atherosclerosis of aorta
CPT/HCPCS: 71046